=== PATIENT | female | born 1955 | race Caucasian/White ===

== ENCOUNTER 2020-04-20 10:03 | Outpatient (CLI) | payer OTHER, SELFPAY ==
--- NOTE | ~2020-04-20 | CT_ITS ---
EXAMINATION: CT lung screening DATE: 04/20/2020 10:49 INDICATION: Personal history of tobacco dependence TECHNIQUE: Computed tomography (CT) of the chest was performed without intravenous contrast. The dose -length product was 379.34 mGy-cm. Automated exposure control and iterative reconstruction technique were employed. Automated exposure control and iterative reconstruction technique were employed. COMPARISON: Comparison to multiple prior studies sequentially, with oldest reviewed study dated 02/11. FINDINGS: There is atherosclerosis. There is physiologic pericardial fluid. No significant pleural ef fusion. No thoracic lymphadenopathy. Upper abdomen is unremarkable. New irregular nodule measuring 1. 4 x 1 x 0.6 cm, right upper lobe, image 47. Stable 3 mm left apical nodule, likely benign. There is e mphysema. There is bilateral lower lobe atelectasis. No endobronchial lesions. The upper abdomen is u nremarkable. There is mild thoracic spondylosis. No osteolytic or blastic lesions are identified. IMPRESSION: 1. Lung Rads category 4B, very suspicious. Recommend pet/CT and/or percutaneous biopsy. Dr. Stafford discussed with Dr. Felecia Stokes MD at 04/20/2020 13:09 SOLAR DEVELOPMENT ENGINEER. Reviewed, dictated and finalized at location A. R DEVELOPMENT ENGINEER
== END 2020-04-20 10:04 | disposition home or self-care (01) ==
PROVIDERS: PCP Family Medicine; Visit Provider Nurse Practitioner Family
DX: Z12.2 Encounter for screening for malignant neoplasm of respiratory organs (principal); Z87.891 Personal history of nicotine dependence; R91.8 Other nonspecific abnormal finding of lung field
CPT/HCPCS: 71271

== ENCOUNTER 2020-05-08 10:09 | Outpatient (CLI) | payer OTHER, SELFPAY ==
--- NOTE | ~2020-05-08 | PE_ITS ---
EXAMINATION: PET skull to mid thigh DATE: 05/08/2020 12:29 INDICATION: New right upper lobe nodule. TECHNIQUE: Blood glucose level was 118 mg/dL. 9.965 mCi of 18-fluorodeoxyglucose (18-FDG) was adminis tered i.v. Low dose computed tomography (CT) images were acquired from the base of the brain to the p roximal thighs for attenuation correction and anatomic localization. Positron emission tomography (PE T) images were acquired in the same distribution beginning 61 minutes after injection. Images includi ng fused PET/CT images were reconstructed in axial, coronal, and sagittal planes. Automated exposure control technique was employed. The dose-length product was 1247.15mGy-cm. COMPARISON: CT dated 04/20/2020 and 03/25/2019 FINDINGS: Head/neck: There is symmetric increased activity in the oral cavity, palatine tonsils, parotid glands, submandi bular glands, laryngeal muscles and ocular muscles without CT correlate, likely physiologic. No patho logically enlarged cervical lymphadenopathy or suspicious foci of increased FDG uptake in the visuali zed head or neck. Chest: Again seen is a 1.3 x 0.8 cm right upper lobe nodule without significant FDG uptake with maximal SUV of 2.9. Mild atelectasis in the lingula and basilar bilateral lower lobes. No other suspicious pulmon anne nodules, pneumonia or other pulmonary infiltrates or pleural effusion. Heart size is normal. No p ericardial effusion. There is scattered increased muscular uptake at the bilateral shoulder girdles m ost prominent at the left infraspinatus and teres minor muscles without CT correlate which is likely physiologic related to recent muscular activity. No pathologically enlarged thoracic lymphadenopathy or other abnormal FDG avid lesions in the thorax. Abdomen/pelvis/proximal thighs: Physiologic renal accumulation and excretion of FDG activity in the kidneys, bladder and along portio ns of ureters. Normal degree and heterogenous pattern of increased uptake throughout the liver withou t radiologic correlate or dominant FDG avid lesion. The gallbladder, pancreas, spleen and bilateral a drenal glands are normal. Mild uptake scattered throughout the bowels without radiologic correlate, a lso likely physiologic. Normal appendix. No other abnormal foci of increased FDG uptake or pathologic ally enlarged lymphadenopathy in the abdomen, pelvis or proximal thighs. Musculoskeletal: Severe lumbar spondylosis. Mild to moderate cervical thoracic spondylosis with bridging osteophytes a t multiple levels consistent with diffuse idiopathic skeletal hyperostosis (DISH). No suspicious lyti c, blastic or FDG avid bone lesions. IMPRESSION: 1. No increased FDG uptake associated with a 13 x 8 mm right upper lobe nodule. While reassuring low- grade malignancy cannot be absolutely excluded and would recommend continued radiographic follow-up w ith 3-6 month follow-up noncontrast chest CT. 2. No other lesions suspicious for primary or metastatic disease in the neck, chest, abdomen or pelvi s. Reviewed, dictated and finalized at location B. ACE WATER MANAGER IMPRESSION: 1. No increased FDG uptake associated with a 13 x 8 mm right upper lobe nodule. While reassuring low-grade malignancy cannot be absolutely excluded and would recommend continued radiographic follow-up with 3-6 month follow-up noncontrast chest CT. 2. No other lesions suspicious for primary or metastatic disease in the neck, c hest, abdomen or pelvis.
[2020-05-08 10:56] LABS: Glucose Point of Care 118 (65-105)
== END 2020-05-08 10:10 | disposition home or self-care (01) ==
LOC: ANHIMG 10:10
PROVIDERS: PCP Family Medicine; Visit Provider Internal Medicine Critical Care Medicine
DX: R91.1 Solitary pulmonary nodule (principal)
CPT/HCPCS: 78815; A9552

== ENCOUNTER 2020-10-08 09:26 | Outpatient (CLI) | payer OTHER, SELFPAY ==
--- NOTE | ~2020-10-08 | CT_ITS ---
EXAMINATION: CT diagnostic chest wo con DATE: 10/08/2020 09:41 INDICATION: Solitary pulmonary nodule TECHNIQUE: Computed tomography (CT) of the chest was performed without intravenous contrast. The dose -length product (DLP) was 463.41 mGy-cm. Automated exposure control and iterative reconstruction tech [email or web address] were employed. COMPARISON: 05/08/2020, 04/20/2020 FINDINGS: An 8 mm nodule in the right upper lobe demonstrates slight decrease in size since the zhen rison examination. There is mild emphysema. No new pulmonary nodules are identified. There is atelect asis. No focal airspace opacities are identified. No pathologically enlarged thoracic lymph nodes are identified. The heart size is normal. Calcified atherosclerosis is noted. There is mild thoracic spo ndylosis. IMPRESSION: 1. Right upper lobe nodule with slight decrease in size and no evidence of FDG uptake on PET/CT, most likely resolving infection/inflammation. Annual low-dose lung cancer screening CT is recommended. Reviewed, dictated and finalized at location B.
== END 2020-10-08 09:27 | disposition home or self-care (01) ==
PROVIDERS: PCP Family Medicine; Visit Provider Nurse Practitioner Family
DX: R91.1 Solitary pulmonary nodule (principal)
CPT/HCPCS: 71250

== ENCOUNTER 2021-02-06 00:42 | Day surgery (SDC) | payer MEDICARE, SELFPAY ==
[2021-01-18 09:07] VITALS: BMI 39.6
--- NOTE | 2021-02-05 09:54 | WPDANESEPPF ---
Anes - Initial Pre Proc Eval Procedure: Operation Date: 02/06/21 09:45 Proposed Procedures p Colonoscopy - Gordo Hightower MD Date/Time: 02/05/21 09:54 Surgeon: Gordo Hightower MD Pre Op Diagnosis: positive cologuard, hx of colon polyps Patient Data Age: 66 Gender: F Height: 1.65 m Weight: 108.2 kg Allergies Allergy/AdvReac Type Severity Reaction Status Date / Time Sulfa (Sulfonamide Allergy Mild Rash Verified 02/06/21 08:47 Antibiotics) Home Medications Medication Instructions Recorded Confirmed Type ascorbic acid (vitamin C) 1,000 mg 1 gm PO DAILY 03/14/19 01/18/21 History tablet aspirin 81 mg tablet,delayed 81 mg PO DAILY 03/14/19 01/18/21 History release calcium 600 mg-D3 800 unit-mag11 1 tablet PO DAILY 03/14/19 01/18/21 History 50 af-okjf-wlqppi-mickey-s.borat tablet cholecalciferol (vitamin D3) 125 5,000 unit PO DAILY 03/14/19 01/18/21 History mcg (5,000 unit) capsule omega-3 fatty acids 1,000 mg 1,000 mg PO DAILY 03/14/19 01/18/21 History capsule omeprazole 20 mg capsule,delayed 20 mg PO DAILY 03/15/19 01/18/21 History release atorvastatin 80 mg tablet 80 mg PO DAILY #90 tablet 12/27/20 01/18/21 Rx fluticasone fur. 100 mcg-umeclid 1 inh INHALATION DAILY #30 12/27/20 01/18/21 Rx 62.5 mcg-vilant 25 mcg inhalation inhalat.powder acetaminophen 300 mg-codeine 30 mg 1 tablet PO Q8H PRN #90 tablet 01/10/21 01/18/21 Rx tablet acyclovir 800 mg tablet 800 mg PO DAILY #90 tablet 01/14/21 01/18/21 Rx fluoxetine 20 mg capsule 20 mg PO DAILY #90 cap 01/14/21 01/18/21 Rx lisinopril 2.5 mg tablet 2.5 mg PO DAILY #90 tablet 01/14/21 01/18/21 Rx metformin 500 mg tablet 500 mg PO DAILY #90 tablet 01/14/21 01/18/21 Rx Patient hx anesthesia problems: none Family hx anesthesia problems: none Results Review: All pre-operative results and documents have been reviewed as part of the pre-operative evaluation. [facility] Past Medical History Medical History (Updated 02/05/21 @ 09:54 by Michael Figueroa, ) Chronic, continuous use of opioids Cigarette nicotine dependence without complication COPD (chronic obstructive pulmonary disease) Dependence on other enabling machines and devices Dietary counseling and surveillance (02/03/19) Difficulty in walking, not elsewhere classified Dyslipidemia Elevated red blood cell count Encounter for gynecological examination (general) (routine) without abnormal findings Encounter to establish care Essential (primary) hypertension Gait abnormality Hepatic steatosis Herpesviral infection, unspecified History of cervical dysplasia History of TIA (transient ischemic attack) 2005 HSV (herpes simplex virus) anogenital infection Hx of solitary pulmonary nodule HX: breast cancer Impaired fasting glucose MDD (major depressive disorder), recurrent episode, moderate Mixed diabetic hyperlipidemia associated with type 2 diabetes mellitus Mixed hyperlipidemia Morbid (severe) obesity due to excess calories Nonalcoholic steatohepatitis (PINK) CRUZITO (obstructive sleep apnea) Osteopenia Other chronic pain Other shelter (current) drug therapy Polycythemia Spinal stenosis of lumbosacral region Thrombocytopenia Type 2 diabetes mellitus without complication Vitamin D deficiency, unspecified Surgical History Surgical History History of lumpectomy of right breast and lymphadenectomy S/P partial hysterectomy S/P RACHEL (total abdominal hysterectomy) 2016 Status post carpal tunnel release of both wrists Family History Family History Father Family history of lung cancer, Onset Age: 64 Family history of malignant neoplasm, Onset Age: 64 Family history of lung disease Family history of hearing loss Mother , July 2018, dementia age 89 Family history of dementia, Onset Age: 89 Carcinoma of colon Diabet
[2021-02-06 08:47] VITALS: BP 108/68; PULSE 92; RESP 22; TEMP 37.3; O2SAT 94
[2021-02-06] MEDS: LACTATED RINGERS 1,000 ML 150 ML IV CONT (09:02)
[2021-02-06 09:07] LABS: Glucose Point of Care 117 mg/dl (65-105)
--- NOTE | 2021-02-06 09:25 | PM.HPGS ---
History of Present Illness History of Present Illness Consent: Risks, benefits, and alternatives have been discussed and questions answered. Patient agrees to proceed with procedure. Chief complaint: positive cologuard, hx of colon polyps Narrative: Lili Quiros is a 66 year old female who had colonoscopy 7-10 years ago with polyp, recent cologuard + Review of Systems Constitutional: Constitutional: Denies headache(s) and Denies weakness Eyes: Eyes: Denies blurry vision ENT: Reports Normal hearing present, Denies headache(s) and Denies neck pain Cardiovascular: Cardiovascular: Denies chest pain and Denies dyspnea Respiratory: Respiratory: Denies dyspnea Gastrointestinal: Gastrointestinal: Reports no additional gastrointestinal complaints Genitourinary: Genitourinary: Denies dysuria Musculoskeletal: Musculoskeletal: Denies neck pain Integumentary/Breasts: Skin/Breast: Denies dry skin Neurologic: Reports Normal hearing present, Denies headache(s) and Denies weakness Psychiatric: Psychiatric: Denies anxiety Endocrine: Endocrine: Denies change in body appearance Hematologic/Lymphatic: Hematologic/Lymphatic: Denies easy bleeding Allergic/Immunologic: Allergic/Immunologic: Denies urticaria PMFSH Past Medical History Medical History (Updated 02/05/21 @ 09:54 by Michael Figueroa, ) Chronic, continuous use of opioids Cigarette nicotine dependence without complication COPD (chronic obstructive pulmonary disease) Dependence on other enabling machines and devices Dietary counseling and surveillance (02/03/19) Difficulty in walking, not elsewhere classified Dyslipidemia Elevated red blood cell count Encounter for gynecological examination (general) (routine) without abnormal findings Encounter to establish care Essential (primary) hypertension Gait abnormality Hepatic steatosis Herpesviral infection, unspecified History of cervical dysplasia History of TIA (transient ischemic attack) 2005 HSV (herpes simplex virus) anogenital infection Hx of solitary pulmonary nodule HX: breast cancer Impaired fasting glucose MDD (major depressive disorder), recurrent episode, moderate Mixed diabetic hyperlipidemia associated with type 2 diabetes mellitus Mixed hyperlipidemia Morbid (severe) obesity due to excess calories Nonalcoholic steatohepatitis (PINK) CRUZITO (obstructive sleep apnea) Osteopenia Other chronic pain Other [facility] (current) drug therapy Polycythemia Spinal stenosis of lumbosacral region Thrombocytopenia Type 2 diabetes mellitus without complication Vitamin D deficiency, unspecified Surgical History Surgical History History of lumpectomy of right breast and lymphadenectomy S/P partial hysterectomy S/P RACHEL (total abdominal hysterectomy) 2016 Status post carpal tunnel release of both wrists Family History Family History Father Family history of lung cancer, Onset Age: 64 Family history of malignant neoplasm, Onset Age: 64 Family history of lung disease Family history of hearing loss Mother , July 2018, dementia age 89 Family history of dementia, Onset Age: 89 Carcinoma of colon Diabetes mellitus Grandparent Family history of cardiovascular disease Family history of lung cancer Sibling Family history of cardiovascular disease Carcinoma of colon Family history of malignant neoplasm of cervix Cerebrovascular accident Social History Social History (Updated 01/14/21 @ 10:43 by Farheen Aguiar) Social History: Smoking packs per day: 1.5 Smoking cigarettes per day: 30.0 Years smoked: 50 Smoking pack-years: 75.00 Smoking status: Current every day smoker Tobacco type: cigarettes Second hand tobacco smoke exposure: No Alcohol intake: never Substance use: never Substance use type: does not use Living arrangements: wi
[2021-02-06 09:51] VITALS: BP 108/67; PULSE 84; RESP 22; O2SAT 98
[2021-02-06 10:01] VITALS: BP 101/63; PULSE 73; RESP 22; O2SAT 98
[2021-02-06 10:11] VITALS: BP 100/61; PULSE 72; RESP 22; O2SAT 98
== END 2021-02-06 10:32 | disposition home or self-care (01) ==
PROVIDERS: PCP Family Medicine; Visit Provider Internal Medicine Gastroenterology
PROC: 0DJD8ZZ Inspection of Lower Intestinal Tract, Via Natural or Artificial Opening Endoscopic (ICD-10-PCS; CPT 45378; principal; 2021-02-06 09:45)
DX: R19.5 Other fecal abnormalities (principal); K57.30 Diverticulosis of large intestine without perforation or abscess without bleeding; K64.8 Other hemorrhoids; D12.2 Benign neoplasm of ascending colon; D12.3 Benign neoplasm of transverse colon; Z86.010 Personal history of colon polyps; J44.9 Chronic obstructive pulmonary disease, unspecified; E78.5 Hyperlipidemia, unspecified; I10 Essential (primary) hypertension; Z86.73 Personal history of transient ischemic attack (TIA), and cerebral infarction without residual deficits; F32.9 Major depressive disorder, single episode, unspecified; E78.2 Mixed hyperlipidemia; K75.81 Nonalcoholic steatohepatitis (NASH); M19.90 Unspecified osteoarthritis, unspecified site; G47.33 Obstructive sleep apnea (adult) (pediatric); M48.07 Spinal stenosis, lumbosacral region; D69.6 Thrombocytopenia, unspecified; E55.9 Vitamin D deficiency, unspecified; E11.9 Type 2 diabetes mellitus without complications; Z87.410 Personal history of cervical dysplasia; B00.9 Herpesviral infection, unspecified; Z99.89 Dependence on other enabling machines and devices; R26.9 Unspecified abnormalities of gait and mobility; F17.210 Nicotine dependence, cigarettes, uncomplicated; Z79.82 Long term (current) use of aspirin; Z79.84 Long term (current) use of oral hypoglycemic drugs
CPT/HCPCS: 45385; 82948; 88305; J2001; J2704; J7120

== ENCOUNTER 2021-03-20 11:34 | Inpatient (IN) | payer MEDICARE, SELFPAY ==
--- NOTE | ~2021-03-20 | XR_ITS ---
EXAMINATION: XR chest 1V portable INDICATION: Shortness of breath TECHNIQUE: Portable AP chest at 1253 hours COMPARISON: 07/12/2018 FINDINGS: The lungs are hyperinflated but free of acute opacities. There is no pleural effusion or pn eumothorax. The cardiomediastinal silhouette is normal. IMPRESSION: 1. Hyperinflation without acute cardiopulmonary abnormality. Reviewed, dictated and finalized at location A. ER FABRICATOR
[2021-03-20 12:31] VITALS: BP 95/50; PULSE 112; RESP 21; TEMP 35.7; O2SAT 94
[2021-03-20] MEDS: ALBUTEROL SULFATE NEB 2.5 MG/0.5 ML INH 5 MG INHALATION (12:55)
[2021-03-20 13:00] LABS: Basophils Absolute Auto 0.1 K/mm3 (0.0-0.1); Basophils Percent Auto 0.4 % (0.2-1.2); Hematocrit 48.9 % (37.0-47.0); Hemoglobin 16.4 g/dL (12.0-15.0); Immature Granulocyte Absolute 0.08 K/mm3 (0.00-0.031); Immature Granulocyte Percent A 0.7 % (0-0.5); Immature Platelet Fraction Pct 5.8 % (0.9-11.2); Lymphocytes Absolute Auto 1.91 K/mm3 (0.9-3.2); Lymphocytes Percent Auto 15.9 % (18.3-44.2); Mean Corpuscular HGB Conc 33.5 g/dl (32-36); Mean Corpuscular Hemoglobin 29.3 pg (26-34); Mean Corpuscular Volume 87.5 fl (80-100); Mean Platelet Volume 11.9 fl (7.4-10.4); Platelet Count Result 135 k/mm3 (150-375); Red Blood Count 5.59 M/mm3 (4.2-5.4)
--- NOTE | 2021-03-20 13:08 | ED.GENADULT ---
HPI - General Adult General Chief complaint: Shortness of Breath/Dyspnea Stated complaint: SOB Time Seen by Provider: 03/20/21 12:08 History of Present Illness HPI narrative: 66-year-old female presented [facility] for evaluation of worsening shortness of breath. Patient does have history of COPD and is intermittently on home oxygen. Patient does not use the oxygen continuously and is unsure of what her settings are supposed to be at home. Patient states over the last 2 to 3 days she had worsening shortness breath. Patient states she has not been using her oxygen more. Patient is complaining of increased sinus congestion. Patient denies any chest pain. Patient denies any associated nausea vomiting or diarrhea. Patient states she is still a smoker of 1 to 1-1/2 packs a day. Patient is vaccinated and did receive her booster. Related Data Home Medications Medication Instructions Recorded Confirmed ascorbic acid (vitamin C) 1,000 mg 1 gm PO DAILY 03/14/19 03/20/21 tablet aspirin 81 mg tablet,delayed 81 mg PO DAILY 03/14/19 03/20/21 release calcium 600 mg-D3 800 unit-mag11 1 tablet PO DAILY 03/14/19 03/20/21 50 ji-wyvj-hllcsl-mickey-s.borat tablet cholecalciferol (vitamin D3) 125 5,000 unit PO DAILY 03/14/19 03/20/21 mcg (5,000 unit) capsule omega-3 fatty acids 1,000 mg 1,000 mg PO DAILY 03/14/19 03/20/21 capsule omeprazole 20 mg capsule,delayed 20 mg PO DAILY 03/15/19 03/20/21 release Allergies Allergy/AdvReac Type Severity Reaction Status Date / Time Sulfa (Sulfonamide Allergy Mild Rash Verified 02/06/21 08:47 Antibiotics) Review of Systems Review of Systems: CONSTITUTIONAL: Denies fever, chills, or sweats. EYES: Denies visual changes, redness, or discharge. ENT: Denies rhinorrhea, congestion, sore throat, or otalgia. CARDIOVASCULAR: Denies chest pain, palpitations, or edema. RESPIRATORY: Increased cough and shortness of breath GASTROINTESTINAL: Denies abdominal pain, nausea, vomiting, or diarrhea. GENITOURINARY: Denies dysuria or hematuria. SKIN: Denies rash or itching. MUSCULOSKELETAL: Denies back pain, joint pain, or myalgia. NEUROLOGIC: Denies headache, numbness, or weakness. PSYCHIATRIC: Denies anxiety or depression. [facility] Past Medical History Medical History (Updated 03/20/21 @ 18:03 by Alina Marcum NP) Boil, breast Chronic, continuous use of opioids Cigarette nicotine dependence without complication COPD (chronic obstructive pulmonary disease) Dependence on other enabling machines and devices Dietary counseling and surveillance (02/03/19) Difficulty in walking, not elsewhere classified Dyslipidemia Elevated red blood cell count Encounter for gynecological examination (general) (routine) without abnormal findings Encounter to establish care Essential (primary) hypertension Gait abnormality Hepatic steatosis Herpesviral infection, unspecified History of cervical dysplasia History of TIA (transient ischemic attack) 2005 HSV (herpes simplex virus) anogenital infection Hx of solitary pulmonary nodule HX: breast cancer Hyperlipidemia Impaired fasting glucose MDD (major depressive disorder), recurrent episode, moderate Mixed diabetic hyperlipidemia associated with type 2 diabetes mellitus Mixed hyperlipidemia Morbid (severe) obesity due to excess calories Nonalcoholic steatohepatitis (PINK) CRUZITO (obstructive sleep apnea) Osteopenia Other chronic pain Other residential (current) drug therapy Polycythemia Positive colorectal cancer screening using Cologuard test Spinal stenosis of lumbosacral region Thrombocytopenia Type 2 diabetes mellitus without complication Vitamin D deficiency, unspecified Surgical History Surgical History History of lumpectomy of right breast and lymphadenectomy S/P partial hysterectomy S/P RACHEL (total abdominal hysterectomy) 2016 Status post carpal tunnel release of both wrists Family Hist
[2021-03-20] MEDS: predniSONE 40 MG, predniSONE 10 MG 50 MG PO (15:49)
[2021-03-20 15:50] VITALS: BP 130/64; PULSE 105; RESP 91; O2SAT 94
[2021-03-20 16:14] LABS: Alanine Aminotransferase 25 U/L (4-35); Albumin Level 4.2 g/dL (3.5-5.1); Alkaline Phosphatase 97 U/L (38-126); Anion Gap 9 mmol/L (8-16); Aspartate Amino Transferase 31 U/L (14-36); Bilirubin,Total 0.9 mg/dL (0.2-1.3); Blood Urea Nitrogen 11 mg/dL (7-17); Calcium 9.1 mg/dL (8.4-10.2); Carbon Dioxide 23 mmol/L (22-30); Chloride 99 mmol/L (98-107); Estimated CRCL calculation 97 ml/min; Estimated Glomerular Filt Rate > 60; Glucose 136 mg/dL (65-110); Potassium 3.9 mmol/L (3.4-5.0); Sodium 131 mmol/L (137-145)
--- NOTE | 2021-03-20 17:27 | PM.IMHP ---
H&P: HPI History of Present Illness Date/Time: 03/20/21 17:27 this is a 66-year-old female patient who has been having worsening shortness of breath. The patient has COPD and obstructive sleep apnea. The patient does wear intermittent oxygen at home. The patient still continues to smoke at least a pack and half a cigarettes a day. The patient is not sure what her oxygen settings are at home. She states that she does not really do a whole lot at home and just lays around most the time. If she does any type of activity she is in a motorized scooter. The patient stated that any type of exertion causes her to be short of breath. She denied any chest pain. The patient has been vaccinated but did not receive her was a for COVID-19. Her white count is noted to be 12.0. The patient stated that she coughs up a thick brownish sputum in the a.m.. Chest x-ray was read as hyperinflation without acute cardiopulmonary abnormality. Patient was given albuterol and prednisone in the emergency room. The patient is being admitted to observation status. On the date of service 03/20/2021. Chief Complaint: sob Review of Systems Review of Systems: All systems reviewed & are unremarkable except as noted in HPI and below Constitutional: Constitutional: Reports as per HPI and Reports no additional constitutional complaints Eyes: Eyes: Reports as per HPI and Reports no additional eye complaints ENT: Reports system reviewed and no additional complaints, except as documented and Reports Normal hearing present Cardiovascular: Cardiovascular: Reports no additional cardiovascular complaints Respiratory: Respiratory: Reports no additional respiratory complaints and Reports no additional respiratory complaints Gastrointestinal: Gastrointestinal: Reports as per HPI and Reports no additional gastrointestinal complaints Musculoskeletal: Musculoskeletal: Reports no additional musculoskeletal complaints Integumentary/Breasts: Skin/Breast: Reports system reviewed and no additional complaints, except as docu and Reports as per HPI Neurologic: Reports system reviewed and no additional complaints, except as documented, Reports as per HPI and Reports Normal hearing present Psychiatric: Psychiatric: Reports no additional psychiatric complaints and Reports as per HPI Endocrine: Endocrine: Reports no additional endocrine complaints Hematologic/Lymphatic: Hematologic/Lymphatic: Reports no additional hematologic/lymphatic complaints Allergic/Immunologic: Allergic/Immunologic: Reports no additional allergic/immunologic complaints [facility] Past Medical History Medical History (Updated 03/20/21 @ 18:03 by Alina A. Benhoff, SHEET MANUFACTURING SUPERVISOR) Boil, breast Chronic, continuous use of opioids Cigarette nicotine dependence without complication COPD (chronic obstructive pulmonary disease) Dependence on other enabling machines and devices Dietary counseling and surveillance (02/03/19) Difficulty in walking, not elsewhere classified Dyslipidemia Elevated red blood cell count Encounter for gynecological examination (general) (routine) without abnormal findings Encounter to establish care Essential (primary) hypertension Gait abnormality Hepatic steatosis Herpesviral infection, unspecified History of cervical dysplasia History of TIA (transient ischemic attack) 2005 HSV (herpes simplex virus) anogenital infection Hx of solitary pulmonary nodule HX: breast cancer Hyperlipidemia Impaired fasting glucose MDD (major depressive disorder), recurrent episode, moderate Mixed diabetic hyperlipidemia associated with type 2 diabetes mellitus Mixed hyperlipidemia Morbid (severe) obesity due to excess calories Nonalcoholic steatohepatitis (PINK) CRUZITO (obstructive sleep apnea) Osteopenia Other chronic pain 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
[2021-03-20 18:06] LABS: Alanine Aminotransferase 27 U/L (4-35); Estimated CRCL calculation 114 ml/min; Estimated Glomerular Filt Rate > 60
[2021-03-20 18:23] LABS: Prothrombin Time 12.6 Seconds (11.1-14.7)
[2021-03-20 18:24] VITALS: BP 110/61; PULSE 100; RESP 29; O2SAT 94
[2021-03-20 20:00] VITALS: BP 134/80; PULSE 97; RESP 20; TEMP 36.6; O2SAT 94
--- NOTE | 2021-03-20 20:02 | PC.NURSE ---
This patient, Lili Quiros, was admitted to [facility] Surg Room 328-01. Patient/family oriented to hospital policies and general routines including ID bracelet, bed and alarms, visiting hours, pain management, procedures, bathroom and other care routines, personal items, smoking policy, room service/diet, and visiting hours. Information on how to activate the Rapid Response Team has been discussed. Patient/Family are encouraged to report perceived risks to care and to ask questions if they do not understand what they are told or what they should do.
[2021-03-20 20:07] VITALS: PULSE 84; RESP 26; O2SAT 94
[2021-03-20 22:00] VITALS: BP 134/80; PULSE 97; RESP 20; TEMP 36.6; O2SAT 94
[2021-03-20 23:51] VITALS: BMI 39.1
[2021-03-21] VITALS (12 sets, daily range): BP systolic 102–135; BP diastolic 36–93; PULSE 69–100; RESP 16–21; TEMP 35.9–37.1; O2SAT 90–95
[2021-03-21] MEDS: levoFLOXacin 500 MG/D5W 100 ML 500 MG/100 ML BAG 100 MG IVPB ×2 (00:12→17:53)
[2021-03-21 07:24] LABS: Basophils Percent Auto 0.3 % (0.2-1.2); Eosinophils Percent Auto 0.1 % (0-4.4); Hematocrit 47.7 % (37.0-47.0); Hemoglobin 16.2 g/dL (12.0-15.0); Immature Granulocyte Absolute 0.06 K/mm3 (0.00-0.031); Immature Granulocyte Percent A 0.5 % (0-0.5); Lymphocytes Absolute Auto 1.63 K/mm3 (0.9-3.2); Lymphocytes Percent Auto 13.3 % (18.3-44.2); Mean Corpuscular Hemoglobin 29.6 pg (26-34); Mean Platelet Volume 11.1 fl (7.4-10.4); Monocytes Absolute Auto 1.1 K/mm3 (0.1-0.6); Monocytes Percent Auto 9.2 % (2.6-8.5); Neutrophils Absolute Auto 9.4 K/mm3 (1.3-6.7); Neutrophils Percent Auto 76.6 % (45.5-73.1); Platelet Count Result 133 k/mm3 (150-375); Red Blood Count 5.48 M/mm3 (4.2-5.4); White Blood Count 12.2 K/mm3 (4.5-10.0)
[2021-03-21 07:42] LABS: Lactic Acid Reflex 0.9 mmol/L (0.7-2.1)
[2021-03-21 07:43] LABS: Prothrombin Time 13.2 Seconds (11.1-14.7)
[2021-03-21 07:44] LABS: Alanine Aminotransferase 32 U/L (4-35); Albumin Level 4.2 g/dL (3.5-5.1); Alkaline Phosphatase 95 U/L (38-126); Anion Gap 10 mmol/L (8-16); Aspartate Amino Transferase 55 U/L (14-36); Bilirubin,Total 0.8 mg/dL (0.2-1.3); Blood Urea Nitrogen 13 mg/dL (7-17); Calcium 9.1 mg/dL (8.4-10.2); Carbon Dioxide 25 mmol/L (22-30); Chloride 99 mmol/L (98-107); Estimated CRCL calculation 96 ml/min; Estimated Glomerular Filt Rate > 60; Glucose 121 mg/dL (65-110); Potassium 3.9 mmol/L (3.4-5.0); Sodium 134 mmol/L (137-145)
[2021-03-21 08:20] LABS: Glucose Point of Care 124 mg/dl (65-105)
[2021-03-21 09:00] LABS: Hemoglobin A1C 5.5 % (<5.7)
[2021-03-21 12:23] LABS: Glucose Point of Care 122 mg/dl (65-105)
--- NOTE | 2021-03-21 13:40 | PM.IMPN ---
Progress Note: A&P Assessment and Plan (1) COPD exacerbation: Code(s): J44.1 - Chronic obstructive pulmonary disease with (acute) exacerbation Status: Acute Assessment and Plan: Continue Decadron until COVID-19 On 2-3 L O2 per nasal cannula, wean to keep sats >93% She does not know how much O2 she requires at home, home O2 eval prior to d/c Continue with inhalers Continue Levaquin due to her elevated white count and her thick sputum Follow sputum culture (2) MDD (major depressive disorder), recurrent episode, moderate: Code(s): F33.1 - Major depressive disorder, recurrent, moderate Status: Acute Assessment and Plan: Continue with fluoxetine. (3) Type 2 diabetes mellitus without complication: Code(s): E11.9 - Type 2 diabetes mellitus without complications Status: Acute Assessment and Plan: Continue metformin Hgb A1c 5.5 SSI, accuchecks Monitor (4) Essential (primary) hypertension: Code(s): I10 - Essential (primary) hypertension Status: Acute Assessment and Plan: Continue with lisinopril Monitor (5) Obstructive sleep apnea (adult) (pediatric): Code(s): G47.33 - Obstructive sleep apnea (adult) (pediatric) Status: Acute Assessment and Plan: Home BiPAP settings (6) Suspected COVID-19 virus infection: Code(s): Z20.822 - Contact with and (suspected) exposure to COVID-19 Status: Acute Assessment and Plan: Continue with contact and droplet isolation Continue with Decadron Supportive care (7) Hyperlipidemia: Code(s): E78.5 - Hyperlipidemia, unspecified Status: Chronic Assessment and Plan: Continue with atorvastatin Subjective Date/time seen: 03/21/21 13:40 Review of Systems Review of Systems: All systems reviewed & are unremarkable except as noted in HPI and below Exam Const: General: no acute distress, alert and awake Orientation/consciousness: patient oriented x3 HENMT: Head: normocephalic and atraumatic Ears: hearing grossly normal bilaterally and external ears normal Face and sinus: face symmetric Mouth: Yes Normal oral and palatal mucosa present Eyes: EOM: EOMs intact bilaterally Neck: Neck: full ROM, trachea midline and no JVD Thyroid: thyroid normal Chest: Chest palpation & inspection: normal inspection of the chest Resp: Effort & Inspection: normal respiratory effort Cardio: Jugular venous distension: no JVD Rate: regular rate Rhythm: regular rhythm Heart sounds: S1 normal heart sound present and S2 normal heart sound present GI: Inspection: obesity GI Palp: Yes Soft to palpation Percussion: Yes normal to percussion Auscultation: normal bowel sounds Back/Spine/Pelvis: Back: no CVA tenderness Skin: General skin exam: normal color Rashes: no rashes Neuro: General: patient oriented x3 and moves all extremities Speech: normal speech Extrem: General: no clubbing, cyanosis or edema Psych: Appearance: grossly normal Affect: normal affect Judgement: Good judgement present (Psych) Objective Data Vital Signs Vital Signs: Vital Signs - 24 hr 03/20/21 15:50 03/20/21 18:24 03/20/21 20:00 Temperature 36.6 C Pulse Rate 105 H 100 97 Respiratory Rate 91 H 29 H 20 Blood Pressure 130/64 110/61 134/80 Pulse Oximetry 94 94 94 03/20/21 20:07 03/20/21 22:00 03/21/21 00:00 Temperature 36.6 C 37.1 C Pulse Rate 84 97 98 Respiratory Rate 26 H 20 16 Blood Pressure 134/80 122/73 Pulse Oximetry 94 94 92 03/21/21 02:30 03/21/21 04:00 03/21/21 05:00 Temperature 35.9 C L Pulse Rate 88 97 88 Respiratory Rate 20 20 20 Blood Pressure 102/36 L Pulse Oximetry 95 95 95 03/21/21 05:38 03/21/21 05:49 03/21/21 06:00 Temperature 36.4 C Pulse Rate 88 95 Respiratory Rate 20 21 H Blood Pressure 112/63 Pulse Oximetry 90 95 93 03/21/21 08:00 03/21/21 12:00 Temperature 36.4 C 35.9 C L Pulse Rate 95 100 Respiratory Rate 21 H 20 Blood Press
[2021-03-21 17:30] LABS: Glucose Point of Care 142 mg/dl (65-105)
[2021-03-21 19:33] LABS: SARS-CoV-2 RNA PCR Negative
[2021-03-21 23:14] LABS: Glucose Point of Care 132 mg/dl (65-105)
[2021-03-22] VITALS (10 sets, daily range): BP systolic 108–133; BP diastolic 50–66; PULSE 70–100; RESP 18–24; TEMP 35.5–36.5; O2SAT 92–96
[2021-03-22 08:04] LABS: INR 0.9; Prothrombin Time 12.4 Seconds (11.1-14.7)
[2021-03-22 08:05] LABS: Alanine Aminotransferase 52 U/L (4-35); Estimated CRCL calculation 96 ml/min; Estimated Glomerular Filt Rate > 60
[2021-03-22] MEDS: ENOXAPARIN 40 MG/0.4 ML SYRINGE SUB-Q (08:29)
[2021-03-22] MEDS: CHOLECALCIFEROL 1,000 UNITS TABLET 5000 UNITS PO (08:29)
[2021-03-22] MEDS: PANTOPRAZOLE 40 MG TABLET PO (08:30)
[2021-03-22] MEDS: metFORMIN HCL 500 MG TABLET PO (08:30)
[2021-03-22] MEDS: lisinopriL 2.5 MG TABLET PO (08:30)
[2021-03-22] MEDS: ASCORBIC ACID 500 MG TABLET 1000 MG PO (08:30)
[2021-03-22] MEDS: OMEGA 3 POLYUNSAT FATTY ACIDS 1 GM CAP PO (08:30)
[2021-03-22] MEDS: ACYCLOVIR 400 MG TABLET 800 MG PO (08:30)
[2021-03-22] MEDS: FLUoxetine HCL 20 MG CAPSULE PO (08:30)
[2021-03-22] MEDS: ASPIRIN 81 MG ENTERIC TABLET PO (08:31)
[2021-03-22] MEDS: ATORVASTATIN 40 MG TABLET 80 MG PO (08:31)
[2021-03-22 08:35] LABS: Glucose Point of Care 93 mg/dl (65-105)
[2021-03-22] MEDS: FLUTICASONE/UMECLIDIN/VILANTER 100-62.5-25 MCG ELLIPTA 1 PUFF INHALATION (09:06)
[2021-03-22 12:35] LABS: Glucose Point of Care 114 mg/dl (65-105)
--- NOTE | 2021-03-22 13:48 | PM.IMPN ---
Progress Note: A&P Assessment and Plan (1) COPD exacerbation: Code(s): J44.1 - Chronic obstructive pulmonary disease with (acute) exacerbation Status: Acute Assessment and Plan: Symptoms consistent with COPD exacerbation as they have improved with steroids and Levaquin -Chest x-ray on admission shows hyperinflation without acute cardiopulmonary abnormality -she was originally on Decadron due to the possibility of COVID but since that is negative, she has been switched to oral prednisone -continue home inhalers -Gram stain shows moderate white blood cells with mixed bacteria consistent with lower respiratory tract. No growth of abnormal bacteria -patient is unsure about her baseline oxygen at home but knows that she is on some -PE is less likely since the patient has had improvement on current therapy, no chest pain, and no lower extremity swelling (2) MDD (major depressive disorder), recurrent episode, moderate: Code(s): F33.1 - Major depressive disorder, recurrent, moderate Status: Acute Assessment and Plan: Continue with fluoxetine (3) Type 2 diabetes mellitus without complication: Code(s): E11.9 - Type 2 diabetes mellitus without complications Status: Acute Assessment and Plan: Last glucose 114 -Continue metformin -continue sliding scale insulin (4) Essential (primary) hypertension: Code(s): I10 - Essential (primary) hypertension Status: Acute Assessment and Plan: Last blood pressure 114/59 -Continue with lisinopril (5) Obstructive sleep apnea (adult) (pediatric): Code(s): G47.33 - Obstructive sleep apnea (adult) (pediatric) Status: Acute Assessment and Plan: continue home BiPAP settings (6) Hyperlipidemia: Code(s): E78.5 - Hyperlipidemia, unspecified Status: Chronic Assessment and Plan: Continue with atorvastatin Time Spent With Patient Time with patient: 25 - 35 minutes Subjective Date/time seen: 03/22/21 13:48 Interval history: Pt is a 66 y/o female who is here for COPD exacerbation. Patient was seen today and states she is feeling much better. She was able to walk to the bathroom with her oxygen and not really feel short of breath. She continues to cough with some sputum production but is now clear instead of dark. She has absolutely no chest pain. Her appetite is better and she is eating and drinking more today than she has in a while. Review of Systems Review of Systems: All systems reviewed & are unremarkable except as noted in HPI and below Exam Narrative: General: Well developed well nourished patient in NAD HEENT: normocephalic Neck: supple Neuro: Alert and oriented x4 CV: regular rate and rhythm Resp: Significantly decreased breath sounds with no wheezing. 5 L applied Abd: Soft, non distended. No pain to palpation. Positive bowel sounds Extremities: No swelling, erythema, or pain to palpation. Objective Data Vital Signs Vital Signs: Vital Signs - 24 hr 03/21/21 16:00 03/21/21 20:00 03/21/21 22:00 Temperature 96.8 F L 97.7 F 97.7 F Pulse Rate 99 86 91 Respiratory Rate 20 18 18 Blood Pressure 107/89 115/51 L 115/51 L Pulse Oximetry 94 92 93 03/22/21 00:00 03/22/21 00:02 03/22/21 04:00 Temperature 96.0 F L Pulse Rate 86 87 90 Respiratory Rate 20 20 Blood Pressure 108/52 L Pulse Oximetry 92 92 03/22/21 06:00 03/22/21 08:00 03/22/21 09:09 Temperature 95.9 F L Pulse Rate 89 70 88 Respiratory Rate 20 18 Blood Pressure 114/59 L Pulse Oximetry 96 96 96 03/22/21 12:00 Temperature Pulse Rate 92 Respiratory Rate Blood Pressure Pulse Oximetry Intake/Output Intake/Output: Intake & Output 03/19/21 03/20/21 03/21/21 03/22/21 23:59 23:59 23:59 23:59 Intake Total 2200 760 Output Total 1300 1500 Balance 900 -740 Meds/Results Medications: Active Medications Generic Name Dose Rout
[2021-03-22 17:11] LABS: Glucose Point of Care 132 mg/dl (65-105)
[2021-03-22] MEDS: levoFLOXacin 500 MG/D5W 100 ML 500 MG/100 ML BAG 100 MG IVPB (17:32)
[2021-03-23] VITALS (10 sets, daily range): BP systolic 110–131; BP diastolic 50–56; PULSE 76–92; RESP 18–30; TEMP 36.5–36.9; O2SAT 91–99
[2021-03-23 07:38] LABS: Basophils Absolute Auto 0.1 K/mm3 (0.0-0.1); Basophils Percent Auto 0.8 % (0.2-1.2); Eosinophils Percent Auto 0.1 % (0-4.4); Hematocrit 46.9 % (37.0-47.0); Hemoglobin 15.6 g/dL (12.0-15.0); Immature Granulocyte Absolute 0.07 K/mm3 (0.00-0.031); Immature Granulocyte Percent A 0.7 % (0-0.5); Lymphocytes Absolute Auto 3.49 K/mm3 (0.9-3.2); Lymphocytes Percent Auto 36.4 % (18.3-44.2); Mean Corpuscular HGB Conc 33.3 g/dl (32-36); Mean Corpuscular Hemoglobin 28.7 pg (26-34); Mean Corpuscular Volume 86.4 fl (80-100); Mean Platelet Volume 11.3 fl (7.4-10.4); Monocytes Absolute Auto 0.9 K/mm3 (0.1-0.6); Monocytes Percent Auto 9.2 % (2.6-8.5); Neutrophils Absolute Auto 5.1 K/mm3 (1.3-6.7); Neutrophils Percent Auto 52.8 % (45.5-73.1); Platelet Count Result 160 k/mm3 (150-375); Red Blood Count 5.43 M/mm3 (4.2-5.4); Red Cell Distribution Width 13.9 % (11.5-14.5); White Blood Count 9.6 K/mm3 (4.5-10.0)
[2021-03-23 07:47] LABS: Alanine Aminotransferase 48 U/L (4-35); Albumin Level 3.6 g/dL (3.5-5.1); Alkaline Phosphatase 68 U/L (38-126); Anion Gap 10 mmol/L (8-16); Aspartate Amino Transferase 60 U/L (14-36); Bilirubin,Total 0.9 mg/dL (0.2-1.3); Blood Urea Nitrogen 23 mg/dL (7-17); Carbon Dioxide 21 mmol/L (22-30); Chloride 102 mmol/L (98-107); Estimated CRCL calculation 96 ml/min; Estimated Glomerular Filt Rate > 60; Glucose 97 mg/dL (65-110); Potassium 4.1 mmol/L (3.4-5.0); Sodium 133 mmol/L (137-145)
[2021-03-23 08:00] LABS: Glucose Point of Care 97 mg/dl (65-105)
[2021-03-23] MEDS: ACYCLOVIR 400 MG TABLET 800 MG PO (08:41)
[2021-03-23] MEDS: CHOLECALCIFEROL 1,000 UNITS TABLET 5000 UNITS PO (08:41)
[2021-03-23] MEDS: ASPIRIN 81 MG ENTERIC TABLET PO (08:41)
[2021-03-23] MEDS: PANTOPRAZOLE 40 MG TABLET PO (08:41)
[2021-03-23] MEDS: metFORMIN HCL 500 MG TABLET PO (08:41)
[2021-03-23] MEDS: ASCORBIC ACID 500 MG TABLET 1000 MG PO (08:41)
[2021-03-23] MEDS: ATORVASTATIN 40 MG TABLET 80 MG PO (08:41)
[2021-03-23] MEDS: predniSONE 20 MG TABLET 40 MG PO (08:41)
[2021-03-23] MEDS: OMEGA 3 POLYUNSAT FATTY ACIDS 1 GM CAP PO (08:41)
[2021-03-23] MEDS: FLUoxetine HCL 20 MG CAPSULE PO (08:42)
[2021-03-23] MEDS: lisinopriL 2.5 MG TABLET PO (08:42)
[2021-03-23] MEDS: ENOXAPARIN 40 MG/0.4 ML SYRINGE SUB-Q (08:42)
[2021-03-23 10:17] LABS: Hepatitis B Surface Antigen Negative (Negative)
[2021-03-23 10:34] LABS: Hepatitis C Virus Antibody Negative (Negative)
--- NOTE | 2021-03-23 10:38 | PM.DS ---
DS: Admitting Diagnosis Discharge Date 03/25/21 Admitting Diagnosis COPD exacerbation DS: Discharge Diagnosis Discharge Diagnosis (1) Transaminitis: Code(s): R74.01 - Elevation of levels of liver transaminase levels Status: Acute Assessment and Plan: mildly elevated liver enzymes with negative hepatitis screen - she has a history of mild elevation in the past but did seem to get better and now they are a little worse again - could be due to fatty liver or statin use. will hold statin - unlikely cancer since she had a PET scan with no abnormalities back in April - will repeat in 1 week after acute illness and holding the statin therapy. If they are elevated further she may need further workup. She should follow up with her primary care physician. I have sent her repeat labs to their facility (2) Polycythemia: Code(s): D75.1 - Secondary polycythemia Status: Acute Assessment and Plan: likely due to smoking, chronic (3) Discharge planning issues: Code(s): Z02.9 - Encounter for administrative examinations, unspecified Status: Acute Assessment and Plan: discharge delayed 1 day due to home oxygen evaluation and oxygen set (4) COPD exacerbation: Code(s): J44.1 - Chronic obstructive pulmonary disease with (acute) exacerbation Status: Acute Assessment and Plan: improved, continue oral steroids, antibiotics, inhalers, and oxygen as needed (5) Type 2 diabetes mellitus without complication: Code(s): E11.9 - Type 2 diabetes mellitus without complications Status: Acute Assessment and Plan: last glucose 133 - continue home regimen (6) Essential (primary) hypertension: Code(s): I10 - Essential (primary) hypertension Status: Acute Assessment and Plan: last blood pressure 118/54 - continue lisinopril (7) Obstructive sleep apnea (adult) (pediatric): Code(s): G47.33 - Obstructive sleep apnea (adult) (pediatric) Status: Acute Assessment and Plan: continue BiPAP (8) Hyperlipidemia: Code(s): E78.5 - Hyperlipidemia, unspecified Status: Chronic Assessment and Plan: chronic, holding statin therapy due to mildly elevated liver enzymes (9) Acute and chronic respiratory failure with hypoxia: Code(s): J96.21 - Acute and chronic respiratory failure with hypoxia Status: Acute Assessment and Plan: due to COPD DS: Summary Hospital Course Hospital Course: Pt is a 66 y/o female with COPD who requires oxygen at home but does not routinely use it who presented to the ED for worsening shortness of breath. vitals in the ER were temperature 96.3?, pulse 112, respiratory rate 21, blood pressure 95/50, pulse 94. Initial white blood count 5.0, hemoglobin 16.4, hematocrit 48.9, platelets 135. Initial BMP was relatively normal with the exception of sodium 131. Glucose 136. Liver enzymes initially normal.Chest x-ray showed hyperinflation without acute cardiopulmonary abnormality. Patient was admitted to the hospitalist service and started on steroids and antibiotics. She tested negative for COVID. The patient improved dramatically on the steroids. Due to her improvement of her heart rate and symptoms with steroids, PE seems less likely. She did, however continue to require oxygen which is not surprising because she is supposed to be on oxygen at home but has not been using it for a while. A home oxygen evaluation was done which showed she needed no oxygen at rest but 2 L with activity. During her stay her liver enzymes were mildly elevated with no abdominal pain. Hepatitis screen was done and was negative. I suspect that these will improve over time and I have asked her to get these checked outpatient and hold her statin medication until she sees her primary care physician. Overall, the patient had a lot of improvement the d
[2021-03-23 12:18] LABS: Glucose Point of Care 106 mg/dl (65-105)
--- NOTE | 2021-03-23 13:00 | PM.IMPN ---
Progress Note: A&P Assessment and Plan (1) Discharge planning issues: Code(s): Z02.9 - Encounter for administrative examinations, unspecified Status: Acute Assessment and Plan: Patient is medically stable for discharge but was unable to receive a home oxygen evaluation and oxygen to safely discharged. This delayed her discharge and the plan is to hopefully discharge her 03/24/21 (2) Transaminitis: Code(s): R74.01 - Elevation of levels of liver transaminase levels Status: Acute Assessment and Plan: mildly elevated liver enzymes with negative hepatitis screen - she has a history of mild elevation in the past but did seem to get better and now they are a little worse again - could be due to fatty liver or statin use. will hold statin - unlikely cancer since she had a PET scan with no abnormalities back in April - will repeat in 1 week after acute illness and holding the statin therapy. If they are elevated further she may need further workup. She should follow up with her primary care physician. I have sent her repeat labs to their facility (3) Polycythemia: Code(s): D75.1 - Secondary polycythemia Status: Acute Assessment and Plan: likely due to smoking, chronic (4) COPD exacerbation: Code(s): J44.1 - Chronic obstructive pulmonary disease with (acute) exacerbation Status: Acute Assessment and Plan: improved, continue oral steroids, antibiotics, inhalers, and oxygen as needed (5) Type 2 diabetes mellitus without complication: Code(s): E11.9 - Type 2 diabetes mellitus without complications Status: Acute Assessment and Plan: last glucose 162 - continue sliding scale insulin and metformin (6) Essential (primary) hypertension: Code(s): I10 - Essential (primary) hypertension Status: Acute Assessment and Plan: last blood pressure 110/50 - continue lisinopril (7) Obstructive sleep apnea (adult) (pediatric): Code(s): G47.33 - Obstructive sleep apnea (adult) (pediatric) Status: Acute Assessment and Plan: continue BiPAP (8) Hyperlipidemia: Code(s): E78.5 - Hyperlipidemia, unspecified Status: Chronic Assessment and Plan: chronic, holding statin therapy due to mildly elevated liver enzymes (9) Acute and chronic respiratory failure with hypoxia: Code(s): J96.21 - Acute and chronic respiratory failure with hypoxia Status: Acute Assessment and Plan: due to COPD Subjective Date/time seen: *late entry* date of service 03/23/2021 1300 Interval history: Pt is a 66 y/o female who is here for COPD exacerbation. patient was seen today and doing better. She feels like she is at her baseline and has improved since hospitalization. She has been walking around the room without issue. She has a mild cough but nothing distressing. No chest pain. She is to have oxygen at home but no longer has any oxygen and only has an empty tank. She understands that she needs to use the oxygen to prevent worsening lung disease and she is not able to smoke around the oxygen as it is flammable. Exam Narrative: General: Well developed well nourished patient in NAD HEENT: normocephalic Neck: supple Neuro: Alert and oriented x4 CV: regular rate and rhythm Resp: Significantly decreased breath sounds with no wheezing. 5 L applied Abd: Soft, non distended. No pain to palpation. Positive bowel sounds Extremities: No swelling, erythema, or pain to palpation. Objective Data Vital Signs Vital Signs: Vital Signs - 24 hr 03/23/21 14:00 03/23/21 15:46 03/23/21 15:57 Temperature 98.5 F Pulse Rate 92 86 88 Respiratory Rate 22 H 18 18 Blood Pressure 110/50 L Pulse Oximetry 96 03/23/21 20:00 03/23/21 22:00 03/24/21 02:18 Temperature 97.7 F Pulse Rate 81 77 Respiratory Rate 20 18 Blood Pressure 1
[2021-03-23] MEDS: ALBUTEROL SULFATE NEB 2.5 MG/0.5 ML INH 5 MG INHALATION (15:44)
[2021-03-23] MEDS: IPRATROPIUM BR 0.02% INH SOLN 0.5 MG/2.5 ML VIAL INHALATION (15:45)
[2021-03-23 17:00] LABS: Glucose Point of Care 162 mg/dl (65-105)
[2021-03-23] MEDS: levoFLOXacin 500 MG/D5W 100 ML 500 MG/100 ML BAG 100 MG IVPB (17:48)
[2021-03-23 22:02] LABS: Glucose Point of Care 114 mg/dl (65-105)
[2021-03-24] VITALS (12 sets, daily range): BP systolic 110–118; BP diastolic 54–59; PULSE 77–105; RESP 18–20; TEMP 36.2–36.6; O2SAT 84–98
[2021-03-24] MEDS: IPRATROPIUM BR 0.02% INH SOLN 0.5 MG/2.5 ML VIAL INHALATION ×2 (02:18→09:16)
[2021-03-24] MEDS: ALBUTEROL SULFATE NEB 2.5 MG/0.5 ML INH 5 MG INHALATION ×2 (02:18→09:17)
[2021-03-24 07:50] LABS: Alanine Aminotransferase 47 U/L (4-35); Estimated CRCL calculation 96 ml/min; Estimated Glomerular Filt Rate > 60; INR 0.9; Prothrombin Time 12.5 Seconds (11.1-14.7)
[2021-03-24 08:17] LABS: Glucose Point of Care 92 mg/dl (65-105)
[2021-03-24] MEDS: FLUTICASONE/UMECLIDIN/VILANTER 100-62.5-25 MCG ELLIPTA 1 PUFF INHALATION (09:17)
[2021-03-24] MEDS: FLUoxetine HCL 20 MG CAPSULE PO (09:43)
[2021-03-24] MEDS: predniSONE 20 MG TABLET 40 MG PO (09:43)
[2021-03-24] MEDS: CHOLECALCIFEROL 1,000 UNITS TABLET 5000 UNITS PO (09:43)
[2021-03-24] MEDS: PANTOPRAZOLE 40 MG TABLET PO (09:43)
[2021-03-24] MEDS: metFORMIN HCL 500 MG TABLET PO (09:43)
[2021-03-24] MEDS: ATORVASTATIN 40 MG TABLET 80 MG PO (09:43)
[2021-03-24] MEDS: ASCORBIC ACID 500 MG TABLET 1000 MG PO (09:43)
[2021-03-24] MEDS: lisinopriL 2.5 MG TABLET PO (09:44)
[2021-03-24] MEDS: ASPIRIN 81 MG ENTERIC TABLET PO (09:44)
[2021-03-24] MEDS: ACYCLOVIR 400 MG TABLET 800 MG PO (09:44)
[2021-03-24] MEDS: OMEGA 3 POLYUNSAT FATTY ACIDS 1 GM CAP PO (09:44)
[2021-03-24] MEDS: ENOXAPARIN 40 MG/0.4 ML SYRINGE SUB-Q (09:44)
[2021-03-24 09:49] LABS: HAV RESULT Negative (Negative); Hepatitis B Core IgM Result Negative (Negative)
[2021-03-24 11:35] LABS: Glucose Point of Care 133 mg/dl (65-105)
--- NOTE | 2021-03-24 12:43 | PCRCNOTE ---
HOME O2 EVALUATION COMPLETE; PT. REQUIRES 2LITERS WITH ACTIVITY. PT. STATES SHE ALREADY HAS HOME OXY.GEN SET UP WITH IV RESP. CARE
--- NOTE | 2021-03-24 16:19 | PCRCNOTE ---
Window of time for administration has passed. See next scheduled administration.
== END 2021-03-24 16:50 | disposition home or self-care (01) | DRG 191 ==
LOC: ANHED 14:16 → ANH3MEDSUR 20:56
PROVIDERS: Nurse Practitioner; Admitting Provider Internal Medicine; Emergency Provider Emergency Medicine; PCP Family Medicine; Visit Provider Physician Assistant
DX: J44.1 Chronic obstructive pulmonary disease with (acute) exacerbation (principal); F33.1 Major depressive disorder, recurrent, moderate; J96.11 Chronic respiratory failure with hypoxia; Z20.822 Contact with and (suspected) exposure to COVID-19; G47.33 Obstructive sleep apnea (adult) (pediatric); I10 Essential (primary) hypertension; F17.210 Nicotine dependence, cigarettes, uncomplicated; E11.69 Type 2 diabetes mellitus with other specified complication; E78.2 Mixed hyperlipidemia; R74.01 Elevation of levels of liver transaminase levels; D75.1 Secondary polycythemia; Z79.82 Long term (current) use of aspirin; Z79.84 Long term (current) use of oral hypoglycemic drugs; Z86.73 Personal history of transient ischemic attack (TIA), and cerebral infarction without residual deficits; Z85.3 Personal history of malignant neoplasm of breast; Z99.81 Dependence on supplemental oxygen
CPT/HCPCS: 36415; 71045; 80048; 80053; 80074; 80076; 82565; 82728; 82948; 83036; 83605; 83735; 84443; 84460; 85025; 85055; 85610; 87070; 87077; 87205; 94618; 94640; 94660; 99285; A9270; C9803; J1100; J1650; J1956; J7512; U0003; U0005

== ENCOUNTER 2021-10-09 10:46 | Outpatient (CLI) | payer MEDICARE, SELFPAY ==
--- NOTE | ~2021-10-09 | CT_ITS ---
EXAMINATION: CT lung screening DATE: 10/09/2021 11:10 INDICATION: Personal history of nicotine dependence TECHNIQUE: Computed tomography (CT) of the chest was performed without intravenous contrast. The dose -length product was 459.01 mGy-cm. Automated exposure control and iterative reconstruction technique were employed. COMPARISON: Comparison to multiple prior studies sequentially, with oldest reviewed study dated 11/2020. FINDINGS: There is atherosclerosis of the aorta and coronary arteries. Heart size is normal. No signi ficant pleural or pericardial effusion. There is moderate emphysema. No endobronchial lesions. There is dependent atelectasis. There is minimal residual atelectasis/scarring in the right upper lobe with a less nodular appearance than on prior studies. This nodule measures 5 mm. No endobronchial lesions . Small hiatal hernia. There is a 2 mm left upper lobe nodule, image 24. There are a few additional s mall subpleural nodules measuring 2 mm or less. No endobronchial lesions. No pneumothorax. Mild thora cic spondylosis. IMPRESSION: 1. Lung-RADS category 2: Benign appearance or behavior. Continue annual screening with noncontrast lo w-dose chest CT in 12 months. Reviewed, dictated and finalized at location A. IMPRESSION: 1. Lung-RADS category 2: Benign appearance or behavior. Continue annual screeni ng with noncontrast low-dose chest CT in 12 months.
== END 2021-10-09 10:47 | disposition home or self-care (01) ==
LOC: ANHIMG 10:51
PROVIDERS: PCP Family Medicine; Visit Provider Nurse Practitioner Family
DX: Z87.891 Personal history of nicotine dependence (principal)
CPT/HCPCS: 71271

== ENCOUNTER 2022-10-10 13:16 | Outpatient (CLI) | payer MEDICARE, SELFPAY ==
--- NOTE | ~2022-10-10 | CT_ITS ---
EXAMINATION: CT lung screening DATE: 10/10/2022 13:42 INDICATION: Personal history of nicotine dependence, prior smoker with 75 pack year history TECHNIQUE: Computed tomography (CT) of the chest was performed without intravenous contrast. The dose -length product (DLP) was 374.25 mGy-cm. Automated exposure control and iterative reconstruction tech [employer] were employed. COMPARISON: 09/29/2021 FINDINGS: There is mild emphysema. There is a 3 mm nodule of the right lung apex. There is a stable 3 mm nodule of the left lung apex. The lungs are free of acute opacities. No pleural effusion or pneum othorax. No pathologically enlarged thoracic lymph nodes are identified. The heart size is normal. Ca lcified coronary artery atherosclerosis is noted. There is mild thoracic spondylosis. There is chroni c scarring of the lingula and right middle lobe. There is a postoperative seroma the right breast. IMPRESSION: 1. Lung-RADS category 2: Benign appearance or behavior. Continue annual screening with noncontrast lo w-dose chest CT in 12 months. Reviewed, dictated and finalized at location B. IMPRESSION: 1. Lung-RADS category 2: Benign appearance or behavior. Continue annual screeni ng with noncontrast low-dose chest CT in 12 months.
== END 2022-10-10 13:17 | disposition home or self-care (01) ==
PROVIDERS: PCP Family Medicine; Visit Provider Nurse Practitioner Family
DX: Z12.2 Encounter for screening for malignant neoplasm of respiratory organs (principal); Z87.891 Personal history of nicotine dependence
CPT/HCPCS: 71271

== ENCOUNTER 2023-10-12 09:44 | Outpatient (CLI) | payer MEDICARE, SELFPAY ==
--- NOTE | ~2023-10-12 | CT_ITS ---
EXAMINATION: CT lung screening DATE: 10/12/2023 10:48 INDICATION: Z87.891 - Personal history of nicotine dependence TECHNIQUE: Computed tomography (CT) of the chest was performed without intravenous contrast. Addition al 3D reconstructions utilizing coronal maximum intensity projection (MIP) were performed. Automated exposure control and iterative reconstruction technique were employed. The dose-length product was 52 0.39 mGy-cm. COMPARISON: 10/10/2022 and 10/08/2020 FINDINGS: Mild emphysema. 2 mm calcified right apical nodule consistent with old granulomatous disease. 7 x 4 m m noncalcified nodule at the anterior segment of the left upper lobe on series 4, image 60. 3 mm like ly perifissural lymph node along the right minor fissure. Both are unchanged since CT dated 10/08/2020 Bandlike discoid atelectasis in the lower lungs in the bilateral lower lobes, lingula and right midd le lobe. No pneumonia, pulmonary edema or pleural effusion. Heart size is normal. Atherosclerotic cor onary artery calcifications. No pericardial effusion. Thoracic aorta is normal in caliber. No patholo gically enlarged thoracic lymphadenopathy. Visualized upper abdomen is unremarkable. Moderate thoraci c spondylosis. IMPRESSION: 1. Lung-RADS category 2: Benign appearance or behavior. Continue annual screening with noncontrast lo w-dose chest CT in 12 months. Reviewed, dictated and finalized at location B. IMPRESSION: 1. Lung-RADS category 2: Benign appearance or behavior. Continue annual screeni ng with noncontrast low-dose chest CT in 12 months.
== END 2023-10-12 09:45 | disposition home or self-care (01) ==
PROVIDERS: PCP Family Medicine; Visit Provider Nurse Practitioner Family
DX: Z12.2 Encounter for screening for malignant neoplasm of respiratory organs (principal); Z87.891 Personal history of nicotine dependence
CPT/HCPCS: 71271

== ENCOUNTER 2024-10-18 10:28 | Outpatient (CLI) | payer MEDICARE, SELFPAY ==
--- NOTE | ~2024-10-18 | CT_ITS ---
CT Scan of the Chest without Contrast: Clinical Indication: Lung cancer screening, nicotine dependence Technique: Contiguous sections were acquired throughout the chest without intravenous contrast. Dose reduction technique was used on this scan by utilizing automated exposure control and iterative recon struction technique. The dose-length product (DLP) was 422.69 mGy-cm. COMPARISON: 10/12/2023 Findings: There is no evidence of any significant mediastinal, hilar or axillary lymphadenopathy. There are ath erosclerotic calcifications of the aorta and coronary arteries. There is no evidence of pleural or pericardial effusion. There is moderate to advanced emphysema. There is chronic linear scarring. There is a 6 mm nodule in the superior segment left lower lobe (axial image 37). Images through the upper abdomen reveal no abnormalities. Impression: Lung RADS 4A: Suspicious. New 6 mm nodule in the superior segment of the left lower lobe. 3 month fol low-up CT scan recommended. Reviewed, dictated and finalized at [facility]. Impression: Lung RADS 4A: Suspicious. New 6 mm nodule in the superior segment of the left l ower lobe. 3 month follow-up CT scan recommended.
--- OUTSIDE RECORDS SUMMARY | 2024-10-18 10:37 | XMS_ITS | Referral Summary ---
Author Organization [place] [id number] [facility] Address [address] [place] [address] Care Team Providers Care Brine Process Operator Name Role Phone Shara Cervantes MD Primary Care Provider Brandon Lackey MD Unavailable Alina Sinclair MD Unavailable [phone] Lenny Ann MD Unavailable Marilyn Hwang PhD Unavailable [phone] Encounters Date Type Department Care Team Description 07/20/2024 11:30 AM CDT Office Visit [facility] Oncology [address] [place] [address] [address] [place] [id number] Lenny Ann MD History of right breast cancer (Primary Dx); Bone disorder; Carcinoma of upper-outer qua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, estrogen receptor positive (HCC); Aromatase inhibitor use 07/20/2024 1:00 PM CDT Infusion [facility] - Infusion [address] [place] [id number] History of right breast cancer (Primary Dx); Bone disorder; Carcinoma of upper-outer qua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, estrogen receptor positive (HCC); Aromatase inhibitor use 07/20/2024 10:30 AM CDT Lab [facility] - Lab Collection [address] [place] [id number] Bone disorder; Carcinoma of upper-outer qua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, estrogen receptor positive (HCC); Aromatase inhibitor use; History of right breast cancer from Last 3 Months Allergies Active Allergy Reactions Criticality Noted Date Comments Sulfa (Sulfonamide Antibiotics) Rash Medium Medications acetaminophen-code ine (TYLENOL with CODEINE #3) 300-30 mg per tabletIndications: Pain Take 1 tablet by mouth as needed 8 Active FLUoxetine (PROzac) 20 mg tabletIndications: Anxiety with Depression Take 1 tablet (20 mg total) by mouth every morning 8 Active lisinopril (PRINIVIL,ZESTRIL) 2.5 mg tabletIndications: hypertension Take 1 tablet (2.5 mg total) by mouth every morning 8 Active metFORMIN (GLUCOPHAGE) 500 mg tabletIndications: Prevention of Type 2 Diabetes Mellitus Take 2 tablets (1,000 mg total) by mouth daily with breakfast 8 Active acyclovir (ZOVIRAX) 800 mg tablet Take 1 tablet (800 mg total) by mouth every morning 1 Active Trelegy Ellipta 100-62.5-25 mcg inhaler Inhale 1 puff every morning 1 Active cholecalciferol (VITAMIN D-3) 5,000 unit capsule Take 1 capsule (5,000 Units total) by mouth every morning Active fish oil-dha-epa 1,200-144-216 mg capsule Take by mouth every morning Active aspirin 81 mg enteric coated tabletIndications: prevention Take 1 tablet (81 mg total) by mouth every morning Active ascorbic acid (VITAMIN C) 500 mg tablet,chewable Take by mouth every morning Active calcium carbonate/vitamin D3 (CALCIUM 500 + D, D3, ORAL) Take by mouth every morning Active atorvastatin (LIPITOR) 40 mg tablet 3 Active omeprazole (PriLOSEC) 20 mg capsule Take 1 capsule (20 mg total) by mouth daily 3 Active fluticasone propionate (FLONASE) 50 mcg/actuation nasal spray USE 1 SPRAY(S) IN EACH NOSTRIL TWICE DAILY 3 Active azelastine (ASTELIN) 137 mcg (0.1 %) nasal spray USE 1 SPRAY(S) IN EACH NOSTRIL EVERY 12 HOURS 3 Active albuterol HFA (PROVENTIL HFA,VENTOLIN HFA,PROAIR HFA) 90 mcg/actuation inhaler 4 Active celecoxib (CeleBREX) 200 mg capsule Take 1 capsule (200 mg total) by mouth daily 5 Active anastrozole (ARIMIDEX) 1 mg tabletIndications: Early Breast Cancer HR Positive and Postmenopausal Take 1 tablet (1 mg total) by mouth daily 90 tablet 11 5 07/05/19 28 Active Active Problems Problem Noted Date Diagnosed Date Aromatase inhibitor use 09/25/2023 Bone disorder 09/25/2023 Radiotherapy follow-up examination 06/03/2023 Malignant neoplasm of right female breast 2021 Overview (09/17/2021): Added automatically from request for surgery [id number] Carcinoma of upper-outer arun 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, estrogen receptor positive 09/05/2021 Cancer Staging:Clinical:Stage IA(cT1b, cN0, cM0, G2, ER+, NH+, HER2-) - Signed by Serg Bernardo MD on 09/05/2021 History of right breast cancer 04/22/2018 Immunizations Immunization Administration Dates Next Due Influenza, Quadrivalent, Spl it, Preservative Free, Intramuscular 01/06/2019,12/11/2017 Influenza, Trivalent, IM (MDV) 02/05/2015,2013,12/21/2012 Influenza, Trivalent, Preser vative Free, Intramuscular 12/23/2016,12/28/2015 Pfizer SARS-CoV-2 Monovalent Vaccination (12+ Yrs) PURPLE 09/06/2021,01/24/2021,07/23/2020,07/02 Pneumococcal Polysaccharide PPV23 12/23/2016 Tdap 12/11/2017 Social History Tobacco Use Types Packs/Day Years Used Date Smoking Tobacco: Former Cigarettes 2 45.9 1 976 - 03/19/2021 Smokeless Tobacco: Never Tobacco Cessation:Counseling Given: Not Answered Alcohol Use Standard Drinks/Week Comments No 0 (1 standard drink = 0.6 oz pur e alcohol) AUDIT-C Answer Date Recorded Q1: How often do you have a drink containing alcohol? Never 10/07/2021 Q2: How many drinks containi ng alcohol do you have on a typical day when you are drinking? Patient does not drink Q3: How often do you have si x or more drinks on one occasion? 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 Gender Identity Female 05/09/2019 3:20 PM DRY CELL TESTER Sexual Orientation Not on file Last Filed Vital Signs Vital Sign Reading Time Taken Comments Blood Pressure 126/81 07/20/2024 11:08 AM CDT Pulse 77 07/20/2024 11:08 AM CDT Temperature 36.7 C (98.1 F) 03/23/2024 10:42 AM DRY CELL TESTER Respiratory Rate 18 03/23/2024 10:42 AM DRY CELL TESTER Oxygen Saturation 92% 07/20/2024 11:08 AM CDT Inhaled Oxygen Concentration - - Weight 118.4 kg (261 lb) 07/20/2024 11:08 AM CDT Height 160 cm (5' 3) 07/20/2024 11:08 AM CDT Body Mass Index 46.23 07/20/2024 11:08 AM CDT Plan of Treatment Not on file Procedures Procedure Name Priority Date/Time Associated Diagnosis Comments EGFR STAT 07/20/2024 10:26 AM CDT Bone disorder Carcinoma of upper-outer qua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, estrogen receptor positive (HCC) Aromatase inhibitor use History of right breast cancer COMPREHENSIVE METABOLIC PANEL STAT 07/20/2024 10:26 AM CDT Bone disorder Carcinoma of upper-outer qua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, estrogen receptor positive (HCC) Aromatase inhibitor use History of right breast cancer DIAGNOSTIC MAMMOGRAM BILATERAL W FRANCISCO Schedule Routine, Read Routine (OP Routine) 07/06/2024 12:00 PM CDT History of breast cancer DEXA AXIAL SKELETON BONE DENSITY 1 OR MORE SITES Schedule Routine, Read Routine (OP Routine) 12/09/2023 11:03 AM CDT Carcinoma of upper-outer qua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, estrogen receptor positive (HCC) Aromatase inhibitor use from Last 3 Months or Most Recently Relevant to Health Maintenance Results * eGFR (07/20/2024 10:26 AM CDT) eGFR >90 >=60 mL/min/1. 73 m2 Comment: Interpretive Data Reference Interval Normal >/= 90 mL/min/1.73m2 Mildly decreased* 60 - 89 mL/min/1.73m2 Mildly to moderately decreased 45 - 59 mL/min/1.73m2 Moderately to severely decreased 30 - 44 mL/min/1.73m2 Severely decreased 15 - 29 mL/min/1.73m2 Kidney Failure < 15 mL/min/1.73m2 *Relative to young adult level Estimated glomerular filtration rate is determined by the 2020 CKD-EPI equation recommended by the National Kidney Foundation (A Unifying Approach to GFR Estimation: Recommendations of the NKF-ASK Task Force on Reassessing the Inclusion of Race in Diagnosing Kidney Disease, JASN 2020). The CKD-EPI equation should not be used for patients with unstable renal function and has not been validated in children and those over 70. Current interpretive data was last reviewed 2021. Blood 07/20/2024 10:2 6 AM CDT 07/20/2024 10:31 AM CDT us [employer] [employer] LAB BLOOD ORDERABLES Final Resu lt [facility] [place] [address] * Comprehensive metabolic panel (07/20/2024 10:26 AM CDT) Pathologist [facility] Sodium 142 135 - 145 mmol/L Potassium, pl 4.4 3.3 - 4.9 mmol/L [facility] Chloride 108 97 - 110 mmol/L [facility] CO2 26 22 - 32 mmol/L [facility] Anion gap 8 2 - 15 mmol/L [facility] BUN 17 6 - 25 mg/dL [facility] Creatinine 0.72 0.60 - 1.10 mg/dL [facility] Glucose 90 70 - 199 mg/dL [facility] Comment: Interpretive Data Fasting glucose >/= 126 mg/dl is diagnostic for diabetes. Fasting is defined as no caloric intake for at least 8 hours. Fasting glucose between 100 mg/dl to 125 mg/dl is diagnostic of prediabetes. In a patient with classic symptoms of hyperglycemia or hyperglycemic crisis, a random glucose >/= 200 mg/dl is diagnostic for diabetes. In the absence of unequivocal hyperglycemia, results should be confirmed by repeat testing. The classification and Diagnosis of Diabetes Diabetes Care 2021; 46: S19-S40. Current interpretive data was last revised 2022. Calcium 9.6 8.5 - 10.3 mg/dL [facility] Bilirubin, total 0.7 0.1 - 1.2 mg/dL [facility] Protein, pl 7.3 6.5 - 8.5 g/dL [facility] Albumin 4.1 3.5 - 5.0 g/dL [facility] Alk phos 92 40 - 130 Units/L [facility] ALT 21 7 - 45 Units/L [facility] AST 22 10 - 45 Units/L [facility] Blood 07/20/2024 10:2 6 AM CDT 07/20/2024 10:31 AM CDT us [employer] LAB BLOOD ORDERABLES Final Resu lt [facility] [place] [address] * Diagnostic Mammogram Bilateral W Francisco (07/06/2024 12:00 PM CDT) Anatomical Region Laterality Modality Breast Bilateral Mammography 07/06/2024 12:2 2 PM CDT Impressions 07/06/2024 12:22 PM CDT Stable changes of right breast conservation therapy. No mammographic evidence of malignancy in either breast. OVERALL FINAL ASSESSMENT: BI-RADS Category 2: Benign. RECOMMENDATION: Annual screening mammography is recommended. Electronically signed by: Chantel Dong M.D. Narrative 07/06/2024 12:22 PM CDT EXAMINATION: BILATERAL DIGITAL DIAGNOSTIC MAMMOGRAM INCLUDING CAD AND BILATERAL DIGITAL BREAST TOMOSYNTHESIS HISTORY: 69-year-old woman with history of invasive ductal carcinoma of the right breast status post breast conservation therapy in 2002 with recurrent disease near the lumpectomy bed in 2021 status post breast conservation therapy. COMPARISON: Multiple prior studies, most recently 07/03/2023 and dating back to 05/20/2019. TECHNIQUE: Full field digital mammographic views of BOTH breasts were performed, including computer aided detection (CAD) and BILATERAL digital breast tomosynthesis (DBT). BREAST PARENCHYMAL COMPOSITION: There are scattered areas of fibroglandular density. MAMMOGRAM FINDINGS: There are post-treatment changes in the right breast. There is no suspicious mass, distortion, or calcification in either breast. There has been no significant interval change from the previous study. Procedure Note Chantel Dong MD - 07/06/2024 EXAMINATION: BILATERAL DIGITAL DIAGNOSTIC MAMMOGRAM INCLUDING CAD AND BILATERAL DIGITAL BREAST TOMOSYNTHESIS HISTORY: 69-year-old woman with history of invasive ductal carcinoma of the right breast status post breast conservation therapy in 2002 with recurrent disease near the lumpectomy bed in 2021 status post breast conservation therapy. COMPARISON: Multiple prior studies, most recently 07/03/2023 and dating back to 05/20/2019. TECHNIQUE: Full field digital mammographic views of BOTH breasts were performed, including computer aided detection (CAD) and BILATERAL digital breast tomosynthesis (DBT). BREAST PARENCHYMAL COMPOSITION: There are scattered areas of fibroglandular density. MAMMOGRAM FINDINGS: There are post-treatment changes in the right breast. There is no suspicious mass, distortion, or calcification in either breast. There has been no significant interval change from the previous study. IMPRESSION: Stable changes of right breast conservation therapy. No mammographic evidence of malignancy in either breast. OVERALL FINAL ASSESSMENT: BI-RADS Category 2: Benign. RECOMMENDATION: Annual screening mammography is recommended. Electronically signed by: Chantel Dong M.D. Brandie Chavez NP IMG MAMMO PROCEDURES Final Result * Dexa Axial Skeleton Bone Density 1 or 2 Site (12/09/2023 11:03 AM CDT) Anatomical Region Laterality Modality Body N/A Radiographic Odalis ging Narrative 12/09/2023 10:13 PM CDT Patient Name: Lili Negrete Date of : 1955 Date of scan: 12/09/2023 Bone mineral density was performed on a Hologic Discovery Densitometer. Based on machine cross-calibration and precision studies the least significant changes of this densitometer is 0.024 g/cm2 at the spine, 0.020 g/cm2 at the total proximal femur, and 0.014g/cm2 at the forearm. HISTORY: This is a 68 y.o. postmenopausal female with a history of asthma, breast cancer, and low bone mass. She reports that she quit smoking about 2 years ago. Her smoking use included cigarettes. She started smoking about 48 years ago. She has a 91.9 pack-year smoking history. She has never used smokeless tobacco. Currently on treatment with calcium, vitamin D, and aromatase inhibitor, previously treated with tamoxifen, and current complaint of back pain. INDICATIONS: Menopause status, aromatase inhibitor therapy, and history of low bone mass. FINDINGS: BONE MINERAL DENSITY OF THE LUMBAR SPINE Bone Mineral Density (BMD) of the lumbar spine was measured from L1-L4 and the average density was calculated to be 1.204 gm/cm2. This corresponds to a T-score (standard deviations from the mean of young adults) of 1.4. When compared to the previous study of 12/06/2021 there has been a -0.023 gm/cm (-1.9%) decrease in bone density that is considered significant. BONE MINERAL DENSITY OF THE PROXIMAL FEMUR Bone Mineral Density (BMD) of the left hip total was found to be 0.907 gm/cm2. This corresponds to a T-score standard deviations from the mean of young adults of -0.3. Femoral neck is 0.520 gm/cm2 with a T-score (standard deviations from the mean of young adults) of -3.0. When compared to the previous study of 12/06/2021 there has been no significant changes in bone density. BONE MINERAL DENSITY OF THE FOREARM Bone Mineral density (BMD) of the left proximal 1/3 of the radius measures 0.603 gm/cm2. This corresponds to a T-score (standard deviations from the mean of young adults) of -1.5. There is no previous study available for comparison. A forearm bone density study was performed in addition to the routine study per protocol. SUMMARY: Bone mineral density shows evidence of osteoporosis and marked increase risk of fracture. There has been a significant decrease in bone density since previous measurement. ADDITIONAL COMMENTS: Postmenopausal Women and Men Over 50: Diagnostic criteria: Osteoporosis: BMD at or below -2.5 T-score; Osteopenia (low bone mass): BMD between -1.0 and -2.5 T-score. If the patient has a history of a fragility fracture, a fracture that occurred with trauma equivalent to a fall from a standing position or less, then the diagnosis is osteoporosis regardless of bone density. The history and data sections of the bone mineral density scan were prepared by Liyah Gordon)(CBDT) who is accredited by the International Society of Clinical Densitometry. The overall patient assessment and scan interpretation were performed by Shannan Moncada MD who is certified by the International Society of Clinical Densitometry. [id number] Lenny Ann MD IMG DXA PROCEDURE S Final Result from Last 3 Months or Most Recently Relevant to Health Maintenance Insurance [facility] HMO [facility] AETNA MEDICARE AET MEDICARE AET MEDICARE Care Teams Brine Process Operator Relationship Specialty Start Date End Date Shara Cervantes MD [address] [place] [address] PCP - General Family Medicine 04/23/18 Brandon Lackey MD [address] [facility] [address] [place] [address] Radiation Oncologist Radiation Oncology 09/05/21 Alina Sinclair MD [address] [place] [address] Surgeon Surgical Oncology 09/19/21 Lenny Ann MD [address] [facility], [address] [address] Medical Oncologist/Software Technician Medical Oncology 02/03/22 Marilyn Hwang, PhD [address] [facility] [facility], [address] [address] Nurse Practitioner Radiation Oncology 02/03/22
--- OUTSIDE RECORDS SUMMARY | 2024-10-18 10:37 | XMS_ITS | Encounter Summary ---
Author Organization [facility] Address [address] [place] [address] Phone Care Team Providers Care Milk House Worker Name Role Phone Shara Cervantes MD Primary Care Provider Brandon Lackey MD Unavailable Alina Sinclair MD Unavailable [phone] Lenny Ann MD Unavailable Marilyn Hwang PhD Unavailable [phone] Encounter Details Date Type Department Care Team (Latest Contact Info) Description 11/05/2021 Orders Only [facility] Scanning, Provider Social History Tobacco Use Types Packs/Day Years Used Date Smoking Tobacco: Former Cigarettes 2 45.9 1 976 - 03/19/2021 Smokeless Tobacco: Never Alcohol Use Standard Drinks/Week Comments No 0 [...] on file 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 Gender Identity Female 05/09/2019 3:20 PM GLUE PLANT OPERATOR Sexual Orientation Not on file documented as of this encounter Plan of Treatment Not on file documented as of this encounter Procedures Procedure Name Priority Date/Time Associated Diagnosis Comments SCAN - PATHOLOGY 11/05/2021 documented in this encounter Results * SCAN - PATHOLOGY (11/05/2021) us Provider Scanning Final Result documented in this encounter Visit Diagnoses Not on filedocumented in this encounter Care Teams Milk House Worker Relationship Specialty Start Date End Date Shara Cervantes MD [address] [place] [address] PCP - General Family Medicine 04/23/18 Brandon Lackey MD [address] [facility] [address] [place] [address] Radiation Oncologist Radiation Oncology 09/05/21 Alina Sinclair MD [address] [place], [place] [id number] Surgeon Surgical Oncology 09/19/21 Lenny Ann MD [address] [facility] [address] Medical Oncologist/Compensation Administrator Medical Oncology 02/03/22 Marilyn Hwang, PhD [address] [facility] [facility], [address] [address] Nurse Practitioner Radiation Oncology 02/03/22 documented as of this encounter
--- OUTSIDE RECORDS SUMMARY | 2024-10-18 10:37 | XMS_ITS | Clinical Summary ---
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, estrogen receptor positive 09/05/2021 Cancer Staging:Clinical:Stage IA(cT1b, cN0, cM0, G2, ER+, ME+, HER2-) - Signed by Serg Bernardo MD on 09/05/2021 History of right breast cancer 04/22/2018 Encounters Date Type Department Care Team Description 07/20/2024 1:00 PM CDT Infusion [facility] - Infusion [address] [facility] [address] [place] [address] History of right breast cancer (Primary Dx); Bone disorder; Carcinoma of upper-outer qua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, estrogen receptor positive (HCC); Aromatase inhibitor use 07/20/2024 11:30 AM CDT Office Visit [facility] [address] [place] [address] [address] [place] [id number] Lenny Ann MD History of right breast cancer (Primary Dx); Bone disorder; Carcinoma of upper-outer qua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, estrogen receptor positive (HCC); Aromatase inhibitor use 07/20/2024 10:30 AM CDT Lab [facility] - Lab Collection [address] [place] [address] 5 [place] [address] Bone disorder; Carcinoma of upper-outer qua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, estrogen receptor positive (HCC); Aromatase inhibitor use; History of right breast cancer from Last 3 Months Immunizations Immunization Administration Dates Next Due Influenza, Quadrivalent, Spl it, Preservative Free, Intramuscular 01/06/2019,12/11/2017 Influenza, Trivalent, IM (MDV) 02/05/2015,2013,12/21/2012 Influenza, Trivalent, Preser vative Free, Intramuscular 12/23/2016,12/28/2015 Pfizer SARS-CoV-2 Monovalent Vaccination (12+ Yrs) PURPLE 09/06/2021,01/24/2021,07/23/2020,07/02 Pneumococcal Polysaccharide PPV23 12/23/2016 Tdap 12/11/2017 Surgical History Surgery Date Site/Laterality Comments ME TOTAL ABDOMINAL HYSTERECT W/WO RMVL TUBE OVARY 04/13/2015 - 04/12/2016 N/A Hysterectomy - (Added by TW Conv) BREAST BIOPSY 08/14/2021 Right CARPAL TUNNEL RELEASE BREAST LUMPECTOMY 03/13/2003 - 04/12/2003 Right Medical History Medical History Date Comments COPD (chronic obstructive pulmonary disease) (HC C) CVA (cerebral vascular accident) (HCC) GERD (gastroesophageal reflux disease) Osteoarthritis CRUZITO (obstructive sleep apnea) Breast cancer (HCC) Overweight History of radiation therapy History of chemotherapy History of chemotherapy 2004 History of radiation therapy Family History Medical History Relation Name Comments Breast cancer Cousin Family history of malignant neoplasm of breast - (Added by TW Conv) Lung cancer Father Family history of lung cancer - (Added by TW Conv) Lung cancer Other Family history of lung cancer - Relation: Uncle (Added by TW Conv) Lung cancer Paternal Grandfather Family history of lung cancer - (Added by TW Conv) Cervical cancer Sister 1 Family histo ry of malignant neoplasm of cervix - (Added by TW Conv) Melanoma Sister 1 Melanoma Sister 2 Melanoma Sister 3 Relation Name Status Comments Cousin Father Other Paternal Grandfather Sister 1 Sister 2 Sister 3 Social History Tobacco Use Types Packs/Day Years [...] on file Legal Sex Female 3:15 AM TRANSFER MAN Gender Identity Female 05/09/2019 3:20 PM TRANSFER MAN Sexual Orientation Not on file Obstetrics History Last Filed Vital Signs Vital Sign Reading Time Taken Comments Blood Pressure 126/81 07/20/2024 11:08 AM CDT Pulse 77 07/20/2024 11:08 AM CDT Temperature 36.7 C (98.1 F) 03/23/2024 10:42 AM TRANSFER MAN Respiratory Rate 18 03/23/2024 10:42 AM TRANSFER MAN Oxygen Saturation 92% 07/20/2024 11:08 AM CDT Inhaled Oxygen Concentration - - Weight 118.4 kg (261 lb) 07/20/2024 11:08 AM CDT Height 160 cm (5' 3) 07/20/2024 11:08 AM CDT Body Mass Index 46.23 07/20/2024 11:08 AM CDT Plan of Treatment Health Maintenance Due Date Last Done Comments Colon Cancer Screening-Colonoscopy 1955 Depression Screening 1955 Hepatitis C Screening 1955 Hepatitis B Screening 01/21/1974 Zoster Vaccine (1 of 2) 01/21/1975 Lung Cancer Screening 01/21/2006 Pneumococcal vaccine 65+ (2 of 2 - PCV) 12/23/2017 12/23/2016 Well Visit 65+ 01/21/2021 Fall Risk Assessment 10/07/2022 10/07/2021, 09/06/19 22 Covid-19 Vaccine (5 - 2023-2 5 season) 2023 09/06/2021, 01/24/2021, 07/23/2020, Additional history exists Influenza Vaccine (Season Ended) 2024 01/06/2019, 12/11/2017, 12/23/2016, Additional history exists Breast Cancer Screening-Mammogram 07/06/2025 07/06/2024, 07/03/2023, 06/17/2022, Additional history exists Osteoporosis Screening-Bone Density Scan 12/08/2025 12/09/2023, 12/06/2021 DTaP/Tdap/Td Vaccine (2 - Td or Tdap) 12/12/2027 12/11/2017 Procedures Procedure Name Priority Date/Time Associated Diagnosis [...] Results * eGFR (07/20/2024 10:26 AM CDT) Pathologist [facility] eGFR >90 >=60 mL/min/1. 73 m2 Comment: [...] AM CDT 07/20/2024 10:31 AM CDT us Miroslava Penaloza SUPERVISOR INDUSTRIAL GARMENT LAB BLOOD ORDERABLES Final Resu lt [facility] Department [place] [address] * Comprehensive metabolic panel (07/20/2024 10:26 AM CDT) Pathologist [facility] Sodium 142 135 - 145 mmol/L Potassium, pl 4.4 3.3 - 4.9 mmol/L [facility] Chloride 108 97 - 110 mmol/L [facility] CO2 26 22 - 32 mmol/L [facility] Anion gap 8 2 - 15 mmol/L [facility] BUN 17 6 - 25 mg/dL [facility] Creatinine 0.72 0.60 - 1.10 mg/dL [facility] Glucose 90 70 - 199 mg/dL [facility] Comment: Interpretive Data Fasting glucose >/= 126 [...] 2022. Calcium 9.6 8.5 - 10.3 mg/dL [facility] Bilirubin, total 0.7 0.1 - 1.2 mg/dL [facility] Protein, pl 7.3 6.5 - 8.5 g/dL [facility] Albumin 4.1 3.5 - 5.0 g/dL [facility] Alk phos 92 40 - 130 Units/L [facility] ALT 21 7 - 45 Units/L [facility] AST 22 10 - 45 Units/L [facility] Blood 07/20/2024 10:2 6 AM CDT 07/20/2024 10:31 AM CDT Sanita Burgic SUPERVISOR [employer]USTRIAL GARMENT LAB BLOOD ORDERABLES Final Resu lt [facility] [place] [address] * Diagnostic Mammogram Bilateral W Francisco (07/06/2024 [...] Bone mineral density was performed on a [employer] Discovery Densitometer. Based on machine cross-calibration and [...] mineral density scan were prepared by Liyah Gordon)([facility]) who is accredited by the International Society of Clinical Densitometry. The overall patient assessment and scan interpretation were performed by Shannan Moncada MD who is certified by the International Society of Clinical Densitometry. [id number] Lenny Ann MD IMG DXA PROCEDURE S Final Result from Last 3 Months or Most Recently Relevant to Health Maintenance Insurance [facility] ACCESS T MEDICARE [facility] MEDICARE [facility] MEDICARE Care Teams Billing Typist Relationship Specialty Start Date End Date Shara Cervantes MD [address] [place] [address] PCP - General Family Medicine 04/23/18 Brandon Lackey MD [address] [facility] [address] [place] [address] Radiation Oncologist Radiation Oncology 09/05/21 Alina Sinclair MD [address] [place], [place] [id number] Surgeon Surgical Oncology 09/19/21 Lenny Ann MD [address] [facility], [address] [address] Medical Oncologist/Local Owner Operator Truck Driver Medical Oncology 02/03/22 Marilyn Hwang, PhD [address] [facility], [address] [address] Nurse Practitioner Radiation Oncology 02/03/22
--- OUTSIDE RECORDS SUMMARY | 2024-10-18 10:37 | XMS_ITS ---
Author Organization [place] [id number] [facility] Address [address] [place] [address] Care Team Providers Care Assistant Warehouse Manager Name Role Phone Shara Cervantes MD Primary Care Provider Brandon Lackey MD Unavailable Alina Sinclair MD Unavailable [phone] Lenny Ann MD Unavailable Marilyn Hwang PhD Unavailable [phone] Active Problems Problem Noted Date Diagnosed Date Aromatase inhibitor use 09/25/2023 Bone disorder 09/25/2023 Radiotherapy follow-up examination 06/03/2023 Malignant neoplasm of right female breast 2021 Overview (09/17/2021): Added automatically from request for surgery [id number] Carcinoma of upper-outer arun 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, estrogen receptor positive 09/05/2021 Cancer Staging:Clinical:Stage IA(cT1b, cN0, cM0, G2, ER+, [place]+, HER2-) - Signed by Serg Bernardo MD on 09/05/2021 History of right breast cancer 04/22/2018 Current Treatment and Therapy Plans Zoledronic Acid Every 26 Weeks* Plan Start Date:01/01/2024 Plan Provider:Lenny Ann MD Linked Problems Bone disorderCarcinoma of up per-outer qua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, estrogen receptor positive (HCC)Aromatase inhibitor useHistory of right breast cancer Treatment Medications Current Day (Day 1 , Cycle 3 - Planned for 01/18/2025) Next Day (Day 1, Cycle 4 - Planned for 07/19/2025) No medications scheduled. No medications schedul ed. No medications scheduled. Past Treatment and Therapy Plans No past plan information found. Radiation Treatments * Course C1 R BREAST 202101/22/2022 - 01/29/2022 Treatment Period Energy Fraction Dose Fractions Total Dose Plans Planned R BREAST 2022 - 01/29/2022 520 5 / 2,600 Reference Points Delivered PENN DPV 2022 - 01/29/2022 2,600
--- OUTSIDE RECORDS SUMMARY | 2024-10-18 10:37 | XMS_ITS | Encounter Summary ---
Author Organization [facility] Address [address] [place] [address] Phone Care Team Providers Care Ground Services Instructor Name Role Phone Shara Cervantes MD Primary Care Provider Brandon Lackey MD Unavailable Alina Sinclair MD Unavailable [phone] Lenny Ann MD Unavailable Marilyn Hwang PhD Unavailable [phone] Encounter Details Date Type Department Care Team (Late st Contact Info) Description 07/02/2021 Telephone [facility] Surgery [address] [facility] 5th [place] [address] [place] [address] Shara Cervantes MD [address] [facility] [address] [place] [address] Social History Tobacco Use Types Packs/Day Years Used Date Smoking Tobacco: Every Day Smokeless Tobacco: Never Alcohol Use Standard Drinks/Week Comments No 0 (1 standard drink = 0.6 oz pur e alcohol) Comments No Sex and Gender Information Value Date Recorded Sex Assigned at Not on file Legal Sex Female 3:15 AM SIMULATION ENGINEER Gender Identity Female 05/09/2019 3:20 PM SIMULATION ENGINEER Sexual Orientation Not on file documented as of this encounter Plan of Treatment Not on file documented as of this encounter Visit Diagnoses Not on filedocumented in this encounter Care Teams Ground Services Instructor Relationship Specialty Start Date End Date Shara Cervantes MD [address] [place] [address] PCP - General Family Medicine 04/23/18 Brandon Lackey MD [address] [facility] [address] [place] [address] Radiation Oncologist Radiation Oncology 09/05/21 Alina Sinclair MD [address] [place], [place] [id number] Surgeon Surgical Oncology 09/19/21 Lenny Ann MD [address] [facility], [address] [address] Medical Oncologist/Instrument Repair Specialist Medical Oncology 02/03/22 Marilyn Hwang, PhD [address] [facility] [facility], [address] [address] Nurse Practitioner Radiation Oncology 02/03/22 documented as of this encounter
== END 2024-10-18 10:29 | disposition home or self-care (01) ==
PROVIDERS: PCP Family Medicine; Visit Provider Nurse Practitioner Family
DX: Z12.2 Encounter for screening for malignant neoplasm of respiratory organs (principal); Z87.891 Personal history of nicotine dependence; R91.1 Solitary pulmonary nodule
CPT/HCPCS: 71271

== ENCOUNTER 2025-02-06 10:12 | Outpatient (CLI) | payer MEDICARE, SELFPAY ==
--- NOTE | ~2025-02-06 | CT_ITS ---
Exam: CT chest without contrast Clinical History: [Solitary pulmonary nodule ] Comparison: [ 10/18/2024 and 10/09/2021] Technique: Multiple axial CT images of the chest without with IV contrast. Sagittal and coronal reformatted images were obtained. FINDINGS: Lungs and pleura: [ Tracheal bronchial tree is patent. No pneumothorax. No pleural effusion. No pulmonary mass. Grossly stable centrilobular and paraseptal emphysema in the upper lobes.] There are a few small subpleural reticular and bandlike opacities in both lungs similar to the prior study. The previously identified 3 mm pulmonary nodule in the right lung apex is no longer identified. Mediastinum and pulmonary mihir: [ No mass or adenopathy.] Axillary/intramammary and supraclavicular: [ No mass or adenopathy.] Heart and great vessels: [ Normal heart size.[ [ No pericardial effusion.] [ No aneurysm.] There are a few coronary artery calcifications. Thoracic aorta is moderately calcified. Chest Wall: Stable probable prior surgical change in the right breast. Correlate clinically. Upper Abdomen: [ No significant findings.] Osseous structures: [ No acute fracture lesion.] [ Multilevel degenerative change in the visualized spine.] Additional findings: [ None of significance.] IMPRESSION: 1. Lung-RADS category 2: Benign appearance or behavior. Continue annual screening with noncontrast low-dose chest CT in 12 months. Reviewed, dictated and finalized at location Q. IMPRESSION: 1. Lung-RADS category 2: Benign appearance or behavior. Continue annual screeni ng with noncontrast low-dose chest CT in 12 months.
--- OUTSIDE RECORDS SUMMARY | 2025-02-06 11:34 | XMS_ITS | Encounter Summary ---
Author Organization [facility] Address [address] [place] [address] Phone Care Team Providers Care Developmental Specialist Name Role Phone Shara Cervantes MD Primary Care Provider Brandon Lackey MD Unavailable Alina Sinclair MD Unavailable [phone] Lenny Ann MD Unavailable Marilyn Hwang PhD Unavailable [phone] Encounter Details Date Type Department Care [...] on file Legal Sex Female 3:15 AM MEDICAL LABORATORY TECHNICAL OFFICER Gender Identity Female 05/09/2019 3:20 PM MEDICAL LABORATORY TECHNICAL OFFICER Sexual Orientation Not on file documented as of this encounter Plan of Treatment Not on file documented as of this encounter Procedures Procedure Name Priority Date/Time Associated Diagnosis Comments SCAN - PATHOLOGY 11/05/2021 documented in this encounter Results * SCAN - PATHOLOGY (11/05/2021) us Provider Scanning Final Result documented in this encounter Visit Diagnoses Not on filedocumented in this encounter Care Teams Developmental Specialist Relationship Specialty Start Date End Date Shara Cervantes MD [address] [place] [address] PCP - General Family Medicine 04/23/18 Brandon Lackey MD [address] [facility] [address] [place] [address] Radiation Oncologist Radiation Oncology 09/05/21 Alina Sinclair MD [address] [place], [place] [id number] Surgeon Surgical Oncology 09/19/21 Lenny Ann MD [address] [facility] [address] Medical Oncologist/New Car Make Ready Worker Medical Oncology 02/03/22 Marilyn Hwang, PhD [address] [facility], [address] [address] Nurse Practitioner Radiation Oncology 02/03/22 documented as of this encounter
--- OUTSIDE RECORDS SUMMARY | 2025-02-06 11:34 | XMS_ITS ---
Author Organization [place] [id number] [facility] Address [address] [place] [address] Care Team Providers Care Animal Breeder Name Role Phone Shara Cervantes MD Primary Care Provider Brandon Lackey MD Unavailable Alina Sinclair MD Unavailable [phone] Lenny Ann MD Unavailable Marilyn Hwang PhD Unavailable [phone] Active Problems Problem Noted Date Diagnosed Date Aromatase inhibitor use 09/25/2023 Bone disorder 09/25/2023 Radiotherapy follow-up examination 06/03/2023 Malignant neoplasm of right female breast 2021 Overview (09/17/2021): Added automatically from request for surgery [id number] Carcinoma of upper-outer arun 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, estrogen receptor positive 09/05/2021 Cancer Staging:Clinical:Stage IA(cT1b, cN0, cM0, G2, ER+, IA+, HER2-) - Signed by Serg Bernardo MD on 09/05/2021 History of right breast cancer 04/22/2018 Current Treatment and Therapy Plans IV Maintenance Therapy Plan* Plan Start Date:01/18/2025 Plan Provider:Lenny Ann MD Linked Problems Carcinoma of upper-outer arun 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, estrogen receptor positive (HCC) Treatment Medications No medications scheduled. Zoledronic Acid Every 26 Weeks* Plan Start Date:01/01/2024 Plan Provider:Lenny Ann MD Linked Problems Bone disorderCarcinoma of up per-outer qua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, estrogen receptor positive (HCC)Aromatase inhibitor useHistory of right breast cancer Treatment Medications Current Day (Day 1 , Cycle 4 - Planned for 07/19/2025) Next Day (Day 1, Cycle 5 - Planned for 01/17/2026) No medications scheduled. No medications schedul ed. [...]
--- OUTSIDE RECORDS SUMMARY | 2025-02-06 11:34 | XMS_ITS | Encounter Summary ---
Author Organization [facility] Address [address] [place] [address] Phone Care Team Providers Care Hot Metal Mixer Operator Helper Name Role Phone Shara Cervantes MD Primary Care Provider Brandon Lackey MD Unavailable Alina Sinclair MD Unavailable [phone] Lenny Ann MD Unavailable Marilyn Hwang PhD Unavailable [phone] Encounter Details Date Type Department Care Team (Late st Contact Info) Description 07/02/2021 Telephone [facility] Surgery [address] [facility] 5th [place] [address] [place] [address] Shara Cervnates MD [address] [facility] [address] [place] [address] Social History Tobacco Use Types Packs/Day Years Used Date Smoking Tobacco: Every Day Smokeless Tobacco: Never Alcohol Use Standard Drinks/Week Comments No 0 (1 standard drink = 0.6 oz pur e alcohol) Comments No Sex and Gender Information Value Date Recorded Sex Assigned at Not on file Legal Sex Female 3:15 AM MASONRY INSTRUCTOR Gender Identity Female 05/09/2019 3:20 PM MASONRY INSTRUCTOR Sexual Orientation Not on file documented as of this encounter Plan of Treatment Not on file documented as of this encounter Visit Diagnoses Not on filedocumented in this encounter Care Teams Hot Metal Mixer Operator Helper Relationship Specialty Start Date End Date Shara Cervantes MD [address] [place] [address] PCP - General Family Medicine 04/23/18 Brandon Lackey MD [address] [facility] [address] [place] [address] Radiation Oncologist Radiation Oncology 09/05/21 Alina Sinclair MD [address] [place], [place] [id number] Surgeon Surgical Oncology 09/19/21 Lenny Ann MD [address] [facility], [address] [address] Medical Oncologist/Nurse Practitioner Hospitalist Medical Oncology 02/03/22 Marilyn Hwang, PhD [address] [facility], [address] [address] Nurse Practitioner Radiation Oncology 02/03/22 documented as of this encounter
--- OUTSIDE RECORDS SUMMARY | 2025-02-06 11:34 | XMS_ITS | Clinical Summary ---
Author Organization [address] Address [facility] [place] [address] Care Team Providers Care Floor Cashier Name Role Phone Shara Cervantes MD Primary Care Provider Brandon Lackey MD Unavailable Alina Sinclair MD Unavailable [phone] Lenny Ann MD Unavailable Marilyn Hwang PhD Unavailable [phone] Allergies Active Allergy Reactions Criticality Noted Date Comments Sulfa (Sulfonamide Antibiotics) Rash Medium Medications acetaminophen-cod eine (TYLENOL with CODEINE #3) 300-30 mg per tabletIndications :Pain Take 1 tablet by mouth as needed 03/10/20 18 Active FLUoxetine (PROzac) 20 mg tabletIndications :Anxiety with Depression Take 1 tablet (20 mg total) by mouth every morning 04/05/20 18 Active lisinopril (PRINIVIL,ZESTRIL ) 2.5 mg tabletIndications :hypertension Take 1 tablet (2.5 mg total) by mouth every morning 03/04/20 18 Active metFORMIN (GLUCOPHAGE) 500 mg tabletIndications :Prevention of Type 2 Diabetes Mellitus Take 2 tablets (1,000 mg total) by mouth daily with breakfast 04/04/20 18 Active acyclovir (ZOVIRAX) 800 mg tablet Take 1 tablet (800 mg total) by mouth every morning 04/13/19 21 Active Trelegy Ellipta 100-62.5-25 mcg inhaler Inhale 1 puff every morning 06/04/19 21 Active cholecalciferol (VITAMIN D-3) 5,000 unit capsule Take 1 capsule (5,000 Units total) by mouth every morning Active fish oil-dha-epa 1,200-144-216 mg capsule Take by mouth every morning Active aspirin 81 mg enteric coated tabletIndications :prevention Take 1 tablet (81 mg total) by mouth every morning Active ascorbic acid (VITAMIN C) 500 mg tablet,chewable Take by mouth every morning Active calcium carbonate/vitamin D3 (CALCIUM 500 + D, D3, ORAL) Take by mouth every morning Active atorvastatin (LIPITOR) 40 mg tablet 04/24/19 23 Active omeprazole (PriLOSEC) 20 mg capsule Take 1 capsule (20 mg total) by mouth daily 04/24/19 23 Active fluticasone propionate (FLONASE) 50 mcg/actuation nasal spray USE 1 SPRAY(S) IN EACH NOSTRIL TWICE DAILY 04/24/19 23 Active azelastine (ASTELIN) 137 mcg (0.1 %) nasal spray USE 1 SPRAY(S) IN EACH NOSTRIL EVERY 12 HOURS 04/24/19 23 Active albuterol HFA (PROVENTIL HFA,VENTOLIN HFA,PROAIR HFA) 90 mcg/actuation inhaler 08/14/19 24 Active celecoxib (CeleBREX) 200 mg capsule Take 1 capsule (200 mg total) by mouth daily 04/28/19 25 Active anastrozole (ARIMIDEX) 1 mg tabletIndications :Early Breast Cancer HR Positive and Postmenopausal Take 1 tablet (1 mg total) by mouth daily 90 tablet 11 01/19/20 25 2027 Active anastrozole (ARIMIDEX) 1 mg tabletIndications :Early Breast Cancer HR Positive and Postmenopausal Take 1 tablet (1 mg total) by mouth daily 90 tablet 11 07/21/19 25 2024 Discontinued(R eorder) anastrozole (ARIMIDEX) 1 mg tabletIndications :Early Breast Cancer HR Positive and Postmenopausal Take 1 tablet (1 mg total) by mouth daily 90 tablet 11 01/19/20 25 2024 Discontinued Active Problems Problem Noted Date Diagnosed Date Aromatase inhibitor use 09/25/2023 Bone disorder 09/25/2023 Radiotherapy follow-up examination 06/03/2023 Malignant neoplasm of right female breast 2021 Overview (09/17/2021): Added automatically from request for surgery [id number] Carcinoma of upper-outer arun 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, estrogen receptor positive 09/05/2021 Cancer Staging:Clinical:Stage IA(cT1b, cN0, cM0, G2, ER+, ME+, HER2-) - Signed by Serg Bernardo MD on 09/05/2021 History of right breast cancer 04/22/2018 Encounters Date Type Department Care Team Description 02/01/2025 Telephone [facility] Medicine Oncology [address] [place] [address] Lenny Ann MD Scheduling Appointments 01/19/2025 Telephone [facility] Oncology [address] [place] [phone] Elvia Ivey 01/19/2025 Telephone [facility] Oncology [facility] [place] [address] [place] [address] Miroslava Penaloza NP 01/18/2025 12:30 PM CDT Infusion [facility] - Infusion [address] [place] [address] Floor [address] [place] [address] Carcinoma of upper-outer qua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, estrogen receptor positive (HCC) (Primary Dx); Bone disorder; Aromatase inhibitor use; History of right breast cancer 01/18/2025 11:30 AM CDT Office Visit [facility] Oncology [address] [place] [phone] Lenny Ann MD History of right breast cancer (Primary Dx); Bone disorder; Carcinoma of upper-outer qua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, estrogen receptor positive (HCC); Aromatase inhibitor use 01/18/2025 10:30 AM CDT Lab [facility] - Lab Collection [address] [place] [address] [address] [place] [address] Bone disorder; Carcinoma of upper-outer qua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, estrogen receptor positive (HCC); Aromatase inhibitor use; History of right breast cancer 01/18/2025 Orders Only [facility] Oncology [facility] [place] [phone] Mars Rodriguez NP from Last 3 Months Immunizations Immunization Administration [...] Date Comments COPD (chronic obstructive pulmonary disease) CVA (cerebral vascular accident) (HCC) GERD (gastroesophageal [...] on file Legal Sex Female 3:15 AM [employer] Gender Identity Female 05/09/2019 3:20 PM [employer] Sexual Orientation Not on file Obstetrics History Last Filed Vital Signs Vital Sign Reading Time Taken Comments Blood Pressure 128/77 01/18/2025 11:58 AM CDT Pulse 80 01/18/2025 11:58 AM CDT Temperature 36.7 C (98.1 F) 01/18/2025 11:58 AM CDT Respiratory Rate 18 01/18/2025 11:58 AM CDT Oxygen Saturation 94% 01/18/2025 11:58 AM CDT Inhaled Oxygen Concentration - - Weight 119.3 kg (263 lb) 01/18/2025 11:58 AM CDT Height 160 cm (5' 3) 07/20/2024 11:08 AM CDT Body Mass Index 46.59 07/20/2024 11:08 AM CDT Plan of Treatment Health Maintenance Due Date Last Done Comments Colon Cancer Screening-Colonoscopy 1955 Depression Screening 1955 Hepatitis C Screening 1955 Hepatitis B Screening 01/21/1974 Zoster Vaccine (1 of 2) 01/21/1975 Pneumococcal vaccine 65+ (2 of 2 - PCV) 12/23/2017 12/23/2016 Well Visit 65+ 01/21/2021 Fall Risk Assessment 10/07/2022 10/07/2021, 09/06/19 22 Covid-19 Vaccine (2024-2 6 season) 2024 09/06/2021, 01/24/2021, 07/23/2020, Additional history exists Influenza Vaccine (#1) 2024 9, 12/11/2017, 12/23/2016, Additional history exists Breast Cancer Screening-Mammogram 07/06/2025 07/06/2024, 07/03/2023, 06/17/2022, Additional history exists Lung Cancer Screening 10/18/2025 10/18/2024, 025 Osteoporosis Screening-Bone Density Scan 12/08/2025 12/09/2023, 12/06/2021 DTaP/Tdap/Td Vaccine (2 - Td or Tdap) 12/12/2027 12/11/2017 Procedures Procedure Name Priority Date/Time Associated Diagnosis Comments EGFR STAT 01/18/2025 9:49 AM CDT Bone disorder Carcinoma of upper-outer qua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, estrogen receptor positive (HCC) Aromatase inhibitor use History of right breast cancer COMPREHENSIVE METABOLIC PANEL STAT 01/18/2025 9:49 AM CDT Bone disorder Carcinoma of upper-outer qua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, estrogen receptor positive (HCC) Aromatase inhibitor use History of right breast cancer CT LUNG CANCER SCREENING Schedule Routine, Read Routine (OP Routine) 10/18/2024 2:57 PM CDT DIAGNOSTIC MAMMOGRAM BILATERAL W FRANCISCO Schedule Routine, [...] Relevant to Health Maintenance Results * eGFR (01/18/2025 9:49 AM CDT) eGFR 85 >=60 mL/min/1. 73 m2 Comment: Interpretive Data [...] interpretive data was last reviewed 2021. Blood 01/18/2025 9:49 AM CDT 01/18/2025 9:52 AM CDT us Lenny Ann MD LAB BLOOD ORDERAB LES Final Result [facility] Department [place] [address] * Comprehensive metabolic panel (01/18/2025 9:49 AM CDT) Sodium 141 135 - 145 mmol/L Potassium, pl 4.1 3.3 - 4.9 mmol/L [facility] Chloride 107 97 - 110 mmol/L [facility] CO2 23 22 - 32 mmol/L [facility] Anion gap 11 2 - 15 mmol/L [facility] BUN 15 6 - 25 mg/dL [facility] Creatinine 0.76 0.60 - 1.10 mg/dL [facility] Glucose 80 70 - 199 mg/dL [facility] Comment: Interpretive Data Fasting glucose >/= [...] interpretive data was last revised 2022. Calcium 9.1 8.5 - 10.3 mg/dL [facility] Bilirubin, total 0.7 0.1 - 1.2 mg/dL [facility] Protein, pl 7.0 6.5 - 8.5 g/dL [facility] Albumin 4.0 3.5 - 5.0 g/dL [facility] Alk phos 84 40 - 130 Units/L [facility] ALT 22 7 - 45 Units/L [facility] AST 18 10 - 45 Units/L [facility] Blood 01/18/2025 9:49 AM CDT 01/18/2025 9:52 AM CDT us Lenny Ann MD LAB BLOOD ORDERAB LES Final Result [facility] Department [place] [address] * CT Lung Cancer Screening (10/18/2024 2:57 PM CDT) Anatomical Region Laterality Modality Chest N/A Computed Tomogra phy Mars Rodriguez NP IMG CT PROCEDURES Final Result * Diagnostic Mammogram Bilateral W Francisco (07/06/2024 [...] Bone mineral density was performed on a [employer] Discovery Densitometer. Based on machine cross-calibration and [...] by the International Society of Clinical Densitometry. [id number] Result [facility] Lenny Ann MD IM DXA PROCEDURE S Final Result from Last 3 Months or Most Recently Relevant to Health Maintenance [facility] AETNA MEDICARE AETNA MEDICARE AETNA MEDICARE Care Teams Floor Cashier Relationship Specialty Start Date End Date Shara Cervantes MD [address] [address] PCP - General Family Medicine 04/23/18 Brandon Lackey MD [address] [facility] [address] [place] [address] Radiation Oncologist Radiation Oncology 09/05/21 Alina Sinclair MD [address] [place] [address] Surgeon Surgical Oncology 09/19/21 Lenny Ann MD [address] [facility], [address] [address] Medical Oncologist/Viscosity Worker Medical Oncology 02/03/22 Marilyn Hwang, PhD [address] [facility], [address] [address] Nurse Practitioner Radiation Oncology 02/03/22
--- OUTSIDE RECORDS SUMMARY | 2025-02-06 11:34 | XMS_ITS | Encounter Summary ---
Author Organization [facility] Address [address] [place] [address] Phone Care Team Providers Care Life Insurance Salesperson Name Role Phone Shara Cervantes MD Primary Care Provider Brandon Lackey MD Unavailable Alina Sinclair MD Unavailable [phone] Lenny Ann MD Unavailable Marilyn Hwang PhD Unavailable [phone] Encounter Details Date Type Department Care Team (Latest Contact Info) Description 10/18/2024 Orders Only [facility] Scanning, Provider Social [...] on file Legal Sex Female 3:15 AM [employer]ING [employer] SUPERVIS[employer] Gender Identity Female 05/09/2019 3:20 PM [employer]ING [employer] SUPER[employer] Sexual Orientation Not on file documented as of this encounter Plan of Treatment Not on file documented as of this encounter Procedures Procedure Name Priority Date/Time Associated Diagnosis Comments SCAN - RADIOLOGY/IMAGING 10/18/2024 documented in this encounter Results * SCAN - RADIOLOGY/IMAGING (10/18/2024) Anatomical Region Laterality Modality Other Provider Scanning Final Result documented in this encounter Visit Diagnoses Not on filedocumented in this encounter Care Teams Life Insurance Salesperson Relationship Specialty Start Date End Date Shara Cervantes MD [address] [place] [address] PCP - General Family Medicine 04/23/18 Brandon Lackey MD [address] [facility] # [address] [place] [address] Radiation Oncologist Radiation Oncology 09/05/21 Alina Sinclair MD [address] [place] [address] Surgeon Surgical Oncology 09/19/21 Lenny Ann MD [address] [facility] [address] [address] Medical Oncologist/Almond Huller Medical Oncology 02/03/22 Marilyn Hwang, PhD [address] [facility], [address] [address] Nurse Practitioner Radiation Oncology 02/03/22 documented as of this encounter
== END 2025-02-06 10:13 | disposition home or self-care (01) ==
PROVIDERS: PCP Family Medicine; Visit Provider Nurse Practitioner Family
DX: R91.1 Solitary pulmonary nodule (principal)
CPT/HCPCS: 71250